=== PATIENT | female | born 1990 | race Caucasian/White ===

== ENCOUNTER 2022-04-26 16:23 | Emergency (ER) | payer BC, SELFPAY ==
[2022-04-26 16:25] VITALS: BP 126/76; PULSE 117; RESP 16; TEMP 37.7; O2SAT 100
--- NOTE | 2022-04-26 16:52 | ED.GENADULT ---
HPI - General Adult General Chief complaint: Upper Respiratory Infection Stated complaint: lump on right side of neck Source: patient Mode of arrival: ambulatory Limitations: no limitations History of Present Illness HPI narrative: Patient presents for evaluation of sick symptoms. For the last few days she has had headache, fatigue, nausea. Yesterday she developed a sore throat and right-sided ear pain. Today she noted some right-sided lymphadenopathy. No recent sick contacts to her knowledge. She had COVID in 2020. She is not COVID vaccinated. She uses an e-cigarette. She is not taking any medications to assist with her symptoms. She took a home COVID test this morning which was negative. Her heart rate was elevated on arrival. She denies any chest pain, shortness of breath, palpitations. She states whenever she is evaluated by a healthcare professional, she feels anxious. She feels anxious at the present time. No additional complaints or concerns Related Data Allergies Allergy/AdvReac Type Severity Reaction Status Date / Time sulfamethoxazole AdvReac Severe Other Verified 04/26/22 16:39 [From Bactrim] trimethoprim [From Bactrim] AdvReac Severe Other Verified 04/26/22 16:39 Review of Systems Review of Systems: CONSTITUTIONAL: Reports fatigue. Denies fever, chills, or sweats. EYES: Denies visual changes, redness, or discharge. ENT: Reports sore throat and right ear pain. Denies rhinorrhea, congestion CARDIOVASCULAR: Denies chest pain, palpitations, or edema. RESPIRATORY: Denies cough or dyspnea. GASTROINTESTINAL: Reports nausea. Denies abdominal pain, vomiting, or diarrhea. GENITOURINARY: Denies dysuria or hematuria. SKIN: Denies rash or itching. LYMPHATICS: Reports right sided lymphadenopathy in the neck MUSCULOSKELETAL: Denies back pain, joint pain, or myalgia. NEUROLOGIC: Denies headache, numbness, dizziness, or weakness. PSYCHIATRIC: Reports anxiety 2/2 coming in for medical evaluation. Denies depression. [facility] Past Medical History Medical History (Updated 04/26/22 @ 17:17 by Rodrigo Silva, LOGISTICS ADMINISTRATOR, ) Anxiety Depression Surgical History Surgical History History of cholecystectomy History of tubal ligation Family History Family History (Reviewed 04/26/22 @ 16:54 by Rodrigo Silva, [facility] Father Esophageal cancer Diabetes mellitus Social History Social History Smoking status: Current every day smoker Tobacco type: e-cigarettes/vaping Alcohol intake: current Alcohol use details: social Substance use: never Living arrangements: with family Gender identity (if verbalized by the patient): Female Sexual Orientation (if Verbalized by the Patient): Straight or Heterosexual Spiritual care concerns: No Exam Narrative: GENERAL: Well-appearing, well-nourished, and in no acute distress. HEAD: Normocephalic, atraumatic. EYES: PERRLA and EOMI. ENT: Nares clear, no rhinorrhea or epistaxis. Mucous membranes moist. Oropharynx without tonsillar hypertrophy exudate or other lesions. Mild posterior pharyngeal erythema. Mild right TM erythema. NECK: Supple. No adenopathy or masses. No carotid bruits or JVD CHEST: Clear to auscultation. No respiratory distress. No wheezes rales or rhonchi HEART: Normal rhythm. Rate 115. No murmur heard. Normal peripheral pulses. ABDOMEN: Soft, nontender, nondistended, normal active bowel sounds. EXTREMITIES: Normal range of motion. No edema. SKIN: Warm, dry, no rash. LYMPHATICS: Right-sided jugulodigastric lymph node tenderness NEURO: No focal deficits. Alert and oriented x3. PSYCH: Normal mood and affect. Course Course Emergency Course: This is a 31-year-old female who presented with reports of sick symptoms. She was tachycardic, but indicated this is consistent with normal tachycardia when she is evaluated by [facility]
== END 2022-04-26 17:20 | disposition home or self-care (01) ==
PROVIDERS: Emergency Provider Nurse Practitioner
DX: J02.9 Acute pharyngitis, unspecified (principal); Z20.822 Contact with and (suspected) exposure to COVID-19; F17.290 Nicotine dependence, other tobacco product, uncomplicated
CPT/HCPCS: 36416; 86308; 87081; 87426; 87880; 99213; C9803; G0463

== ENCOUNTER 2022-04-28 09:55 | Emergency (ER) | payer BC, SELFPAY ==
--- NOTE | ~2022-04-28 | CT_ITS ---
EXAMINATION: CT soft tissue neck w con DATE: 04/28/2022 11:47 INDICATION: Right-sided facial swelling and pain with chewing. TECHNIQUE: Computed tomography (CT) of the neck was performed with 75 mL Omnipaque-300 intravenous co ntrast. Automated exposure control and iterative reconstruction technique were employed. The dose-hilario gth product was 503.08 mGy-cm. COMPARISON: None FINDINGS: Asymmetric swelling and hyperemia of the right parotid gland relative to left. Consistent with paroti tis. There is soft tissue swelling with mild stranding in the subcutaneous fat more caudally at the r ight submandibular region overlying the right submandibular gland which appears relatively symmetric with the left submandibular gland. Thyroid gland is unremarkable. There are scattered normal-sized ly mph nodes in the neck, no lymphadenopathy. No abscess or masses identified. Mastoids and middle ear cavities are clear. Orbits are normal. Asymmetric decreased size of the right maxillary sinus relativ e to the left which could be either developmental or sequela of chronic sinusitis. The vasculature is patentand normal in caliber. Visualized portion of the airway and upper lungs are clear. Superior me diastinum is unremarkable. Bones are unremarkable. IMPRESSION: 1. Asymmetric swelling and hyperemia of the right parotid gland consistent with parotitis. Reviewed, dictated and finalized at location A.
[2022-04-28 10:00] VITALS: BP 133/87; PULSE 99; RESP 18; TEMP 36.8; O2SAT 100
--- NOTE | 2022-04-28 10:36 | ED.GENADULT ---
HPI - General Adult General Chief complaint: Unspecified Stated complaint: Swollen right face Time Seen by Provider: 04/28/22 10:08 Source: patient and old records reviewed Mode of arrival: ambulatory Limitations: no limitations History of Present Illness HPI narrative: Patient is a 31-year-old female who presents to the ED with report of right-sided facial cheek/neck swelling. Patient reports she first noticed the swelling on Thursday. She was seen at urgent care on Thursday at which point she was prescribed amoxicillin for pharyngitis. Tested negative for strep, COVID, mono at that time. She has been taking the amoxicillin as prescribed, but reports with swelling does not seem to be improving, prompting her presentation to the ED today. She has not taken anything for her discomfort. No worsening of discomfort with eating or salivation. She reports having fatigue over the weekend, but denies any significant sore throat, rhinorrhea, congestion, nausea, vomiting, cough, difficulty breathing. She did have a fever at the urgent care, but denies any since. Related Data Allergies Allergy/AdvReac Type Severity Reaction Status Date / Time sulfamethoxazole AdvReac Severe Other Verified 04/28/22 10:05 [From Bactrim] trimethoprim [From Bactrim] AdvReac Severe Other Verified 04/28/22 10:05 Review of Systems Review of Systems: CONSTITUTIONAL: Reports fatigue. Denies fever, chills. ENT: Reports swelling of R sided facial cheek/neck. Denies rhinorrhea, congestion, sore throat, or otalgia. CARDIOVASCULAR: Denies chest pain. RESPIRATORY: Denies cough or dyspnea. GASTROINTESTINAL: Denies nausea, vomiting. MUSCULOSKELETAL: Denies back pain, joint pain, or myalgia. NEUROLOGIC: Denies headache, numbness, or weakness. All systems reviewed & are unremarkable except as noted in HPI and below PMFSH Past Medical History Medical History Anxiety Depression Surgical History Surgical History History of cholecystectomy History of tubal ligation Family History Family History Father Esophageal cancer Diabetes mellitus Social History Social History Smoking status: Current every day smoker Tobacco type: e-cigarettes/vaping Alcohol intake: current Alcohol use details: social Substance use: never Gender identity (if verbalized by the patient): Female Sexual Orientation (if Verbalized by the Patient): Straight or Heterosexual Spiritual care concerns: No Exam Narrative: GENERAL: Well appearing, well-nourished, non-toxic, in no acute distress. HEAD: Normocephalic, atraumatic. EYES: PERRL/EOMI, conjunctivae clear bilaterally. NOSE: Normal, no drainage. EARS:TMS clear, with good light reflex. No erythema or bulging. No tenderness to palpation with manipulation of pinna bilaterally. No swelling or erythema of the EAC bilaterally. THROAT: Pharynx clear, very minimal posterior erythema, no exudate. MMs moist. No deviation of uvula. No significant tonsillar hypertrophy appreciated. NECK: Supple. Tender swelling/suspected LAD right anterior cervical region. Very mild swelling noted to right-sided neck. RESPIRATORY: Airway patent, respirations nonlabored. Clear to auscultation bilaterally, no rales, rhonchi, wheezing. CARDIOVASCULAR: Regular rate and rhythm without murmurs, rubs, or gallops. Peripheral pulses 2+ and equal bilaterally. MUSCULOSKELETAL: Moves all extremities. Strength/ROM intact without gross deformities. SKIN: Warm, dry, normal color. No rashes. NEURO: A&O X3. Speech clear. Cranial nerves II-XII grossly intact. Steady gait. No ataxic movements. PSYCHIATRIC: Appropriate mood and affect. Normal interaction. Course Consultations Consultation #1: Discussed case with Dr. Hudson, ENT. Advised clindamycin
[2022-04-28 11:04] LABS: Basophils Absolute Auto 0.1 K/mm3 (0.0-0.1); Eosinophils Absolute Auto 0.1 K/mm3 (0-0.3); Eosinophils Percent Auto 1.2 % (0-4.4); Hemoglobin 15.3 g/dL (12.0-15.0); Immature Granulocyte Absolute 0.02 K/mm3 (0.00-0.031); Immature Granulocyte Percent A 0.2 % (0-0.5); Lymphocytes Absolute Auto 1.67 K/mm3 (0.9-3.2); Mean Corpuscular HGB Conc 32.6 g/dl (32-36); Mean Corpuscular Hemoglobin 30.1 pg (26-34); Mean Corpuscular Volume 92.3 fl (80-100); Mean Platelet Volume 11.9 fl (7.4-10.4); Monocytes Absolute Auto 0.6 K/mm3 (0.1-0.6); Neutrophils Absolute Auto 6.8 K/mm3 (1.3-6.7); Neutrophils Percent Auto 73.6 % (45.5-73.1); Platelet Count Result 297 k/mm3 (150-375); Red Blood Count 5.09 M/mm3 (4.2-5.4); Red Cell Distribution Width 13.1 % (11.5-14.5); White Blood Count 9.3 K/mm3 (4.5-10.0)
[2022-04-28 11:14] LABS: Alanine Aminotransferase 29 U/L (6-35); Albumin Level 5.2 g/dL (3.5-5.1); Alkaline Phosphatase 85 U/L (38-126); Anion Gap 13 mmol/L (8-16); Aspartate Amino Transferase 22 U/L (14-36); Bilirubin,Total 0.5 mg/dL (0.2-1.3); Blood Urea Nitrogen 13 mg/dL (7-17); Calcium 9.5 mg/dL (8.4-10.2); Carbon Dioxide 28 mmol/L (22-30); Chloride 100 mmol/L (98-107); Estimated CRCL calculation 91 ml/min; Estimated Glomerular Filt Rate > 60; Glucose 95 mg/dL (65-110); Potassium 4.2 mmol/L (3.4-5.0); Sodium 141 mmol/L (137-145)
[2022-04-28 13:06] VITALS: BP 135/80; PULSE 87; RESP 16; O2SAT 99
== END 2022-04-28 13:07 | disposition home or self-care (01) ==
PROVIDERS: Physician Assistant; Emergency Provider Emergency Medicine
DX: K11.21 Acute sialoadenitis (principal); F17.290 Nicotine dependence, other tobacco product, uncomplicated
CPT/HCPCS: 36415; 70491; 80053; 81025; 85025; 99284; Q9967

== ENCOUNTER 2023-05-21 07:44 | Outpatient (CLI) | payer BC, SELFPAY ==
--- NOTE | 2023-06-12 15:08 | WPDSLEEPSTUD ---
Sleep Study Date of Study: 05/21/23 Ordering Provider: Maryann Gamino, Interpreting Physician: Sera Garcia MD Sleep Study Type: CPAP Titration Height: 1.52 m Weight: 96.162 kg Body Mass Index: 41.3 Neck Circumference (inches): 14 [place]: 1 Reason for Sleep Study * 04/01/2023- Home sleep test showing mild obstructive sleep apnea, AHI 5, desaturation to 92%, patient presents now for CPAP titration. 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 She borrowed her smart phone, reports her saturation were down as low as 70% range. Her home sleep test showed an AHI of 5. She now presents for CPAP titration. She rarely a well awakens from sleep feeling short of breath. She frequently awakens at night with heartburn, belching or coughing. She frequently snores, occasionally loud enough that others complain. She frequently has difficulty sleeping with a cold. She does not gasp for breath at night or have a excessive sweating at night. She rarely notices her heart pounding irregularly at night. She does not fall asleep during the day, does not fall asleep involuntarily or while driving. She does not have loss of muscle tone with strong emotion. She does not have daytime difficulties due to excessive sleepiness. She does not feel paralyzed on waking or falling asleep. She does not have vivid dreamlike scenes upon awakening or falling asleep. She does not feel afraid to go to sleep. She rarely has nightmares. She occasionally remembers her dreams. She rarely has racing thoughts, feelings of sadness, depression or anxiety. She does not have muscular tension. She rarely notices parts of her body jerking. She does not kick at night. She does not have crawling or aching feelings in her legs. She denies having leg pain at night. She does not have morning jaw pain. She does not grind her teeth at night. She is not bothered by pain during the day or awakened by pain at night. She does not wake up feeling stiff in the morning with sore muscles or pain in the neck and spine. She takes antacids regularly. Normal bedtime is between 9:00 p.m. and 9:30 p.m., falling asleep within 10-20 minutes, waking once at night to go to the bathroom. 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 She is able to return to sleep within 5 minutes. Her wake-up time is 5:30 a.m. to 6:00 a.m.. On weekends she goes to bed an hour later, between 10:00 p.m. and 10:30 p.m., wakes between 7:00 a.m. and 9:00 a.m.. She estimates getting 6-8 hours of sleep normally. She does not take naps. A short nap is not refreshing. She is drowsy for 2 hours after waking. She feels better in the evening compared to other times of day. Habits: Tobacco; quit smoking 2 years ago. Caffeine, 1 serving a day. Alcohol, only on social occasions. No recreational substance. [facility] Past Medical History Medical History (Updated 06/12/23 @ 17:59 by Sera Garcia MD) Anxiety Depression Surgical History Surgical History History of cholecystectomy History of tubal ligation Family History Family History Father Esophageal cancer Diabetes mellitus Social History Social History Smoking status: Current every day smoker Tobacco type: e-cigarettes/vaping Alcohol intake: current Alcohol use details: social Substance use: never Living arrangements: with family Gender identity (if verbalized by the patient): Female Sexual Orientation (if Verbalized by the Patient): Straight or Heterosexual Spiritual care concerns: No Medications Home Medications Medication Instructions Recorded Confirmed Type amoxicillin 500 mg capsule 500 mg PO TID #30 caps 04/26/22 Rx clindamycin HCl 300 mg cap
[2023-06-12 18:00] VITALS: BMI 41.3
== END 2023-05-22 06:42 | disposition home or self-care (01) ==
PROVIDERS: Visit Provider Family Medicine
DX: G47.33 Obstructive sleep apnea (adult) (pediatric) (principal); R53.83 Other fatigue; F17.290 Nicotine dependence, other tobacco product, uncomplicated
CPT/HCPCS: 95811

== ENCOUNTER 2025-02-28 09:10 | Observation (INO) | payer BC, SELFPAY ==
[2025-02-28] VITALS (7 sets, daily range): BP systolic 112–139; BP diastolic 55–88; PULSE 71–106; RESP 16–20; TEMP 36.3–36.7; O2SAT 98–100; BMI 38.8
--- NOTE | ~2025-02-28 | MR_ITS ---
EXAMINATION: MR brain/brain stem wo/w con DATE: 03/01/2025 15:12 INDICATION: Right-sided facial numbness and weakness. TECHNIQUE: Magnetic resonance imaging (MRI) of the brain and brainstem was performed without and with 18 mL Multihance intravenous contrast. Sequences included sagittal and axial T1-weighted SE, axial d iffusion-weighted FS SE, axial 3D SWAN, axial T2-weighted FLAIR, and axial T2-weighted FSE. Postcontr ast axial and coronal T1-weighted SE was obtained. Apparent diffusion coefficient (ADC) maps were cre ated. COMPARISON: Head CT and CT angiogram dated 02/28/2025 FINDINGS: There are no areas of restricted diffusion to suggest acute infarction. No intracranial hemorrhage or abnormal intracranial mass lesion. There are no intraparenchymal signal abnormalities seen on the ot her pulse sequences. The ventricles are symmetric and normal in size. There are no abnormal extra-axi al fluid collections. Flow voids are seen in the cerebral arteries on the T2-weighted sequences consi stent with their expected patency. Visualized orbits and soft tissues are unremarkable. Consistent is decreased size of the right maxillary sinus There are no areas of abnormal enhancement on the post c ontrast images. IMPRESSION: 1. Normal brain. Reviewed, dictated and finalized at location A. IMPRESSION: 1. Normal brain.
--- NOTE | ~2025-02-28 | CT_ITS ---
EXAMINATION: CTA BRAIN/CAROTID DATE: 02/28/2025 10:47 INDICATION: Right-sided facial numbness and weakness TECHNIQUE: Computed tomographic angiography (CTA) of the head and neck was performed with 100 mL Omni paque-350 intravenous contrast. Multiplanar reconstructions and maximum intensity projection 3D-recon structions of the carotid arteries and of the intracranial arteries were created by the technologist on a separate workstation. Precontrast CT of the head was also obtained. Automated exposure control and iterative reconstruction technique were employed.The dose-length product was 1536.87 mGy-cm. COMPARISON: None. FINDINGS: Carotid arteries: Recess portion of the aortic arch and great vessels arising from the arch are normal in caliber with no hemodynamically significant stenosis or dissection. There is no atherosclerotic plaque with 0% luz nosis of the right and left carotid bulbs relative to normal distal artery lumen diameter (NASCET cri teria). Bilateral vertebral arteries are codominant with no evidence stenosis. Cervical soft tissues are unremarkable. Visualized upper lungs are clear. Likely positional straightening of the normal cer vical lordosis with mild upper thoracic and minimal cervical spondylosis. Head: No acute intracranial hemorrhage, acute infarction or abnormal extra axial fluid collection. Ventricl es are normal and symmetric. No mass/mass effect. No abnormally enhancing brain lesions on the postco ntrast imaging. The right maxillary sinus is small thickening. The orbits, paranasal sinuses and mast oid air cells are normal. Intracranial arteries Vertebral arteries are codominant. There is no hemodynamically significant stenosis in the vertebral, basilar and internal carotid arteries. Both A1 and P1 segments are patent. There are also patent sma ll intercommunicating and bilateral posterior communicating arteries. There are no aneurysms identifi ed. Cerebral arterial arborization appears symmetric. IMPRESSION: 1. No atherosclerotic plaque with 0% stenosis of the right and left carotid bulbs relative to normal distal artery lumen diameter (NASCET criteria). 2. Normal brain and cerebral CT angiogram. Reviewed, dictated and finalized at location A. IMPRESSION: 1. No atherosclerotic plaque with 0% stenosis of the right and left carotid bul bs relative to normal distal artery lumen diameter (NASCET criteria). 2. Normal brain and cerebral CT angiogram.
--- NOTE | ~2025-02-28 | XR_ITS ---
EXAMINATION: XR chest 1V portable 02/28/2025 10:42 INDICATION: Right-sided numbness PROCEDURE: AP portable chest COMPARISON: No prior studies for comparison. FINDINGS: The lungs are clear. The cardiomediastinal silhouette is within normal limits. There are no pleural effusions. There is no pneumothorax suspected. IMPRESSION: 1: NO ACUTE CARDIOPULMONARY DISEASE. Reviewed, dictated and finalized at location A.
--- OUTSIDE RECORDS SUMMARY | 2025-02-28 09:13 | XMS_ITS | Referral Summary ---
Author Organization [facility] Building [address] Address [address] [place] [address] Care Team Providers Care Gastroenterology Nurse Practitioner Name Role Phone Tramaine Shook MD Primary Care Provider Allergies Active Allergy Reactions Criticality Noted Date Comments Sulfamethoxazole-Tr imethoprim Other (See comments) Low History of pancreatitis during treatment of Bactrim. Unable to rule out cause was not related to antibiotic. Medications No known medications Active Problems Problem Noted Date Diagnosed Date Menorrhagia with regular cycle 12/03/2022 Assessment & Plan (12/03/2022 9:56 AM FORGING DIES FINAL FINISHER): Discussed options including Mirena IUD or OPC. She was amenorrheic with Mirena in the past. Discussed bleeding changes and workup including possible pelvic ultrasound and CBC. She does not think her periods are heavy enough at this time to further investigate and she would like to continue to monitor. We discussed that she can continue to monitor her periods and call us if they increase in flow or duration, is symptomatic, or if she begins bleeding irregularly throughout the month. She is receptive to this plan. Perineal abscess 02/04/2019 Assessment & Plan (02/04/2019 6:02 PM CDT): Doxy erx'd to pharmacy - pt does not want abscess(s) to be drained if possible, would like to try oral antibiotics first to see if that clears them up. Call next week if not improving. May have to consider I&D. Acute cholecystitis 03/25/2016 Overview (01/08/2017): Acute cholecystitis No pathologic diagnosis 11/02/2013 Overview (01/09/2017): No diagnosis Immunizations Immunization Administration Dates Next Due Tdap 11/28/2015 Social History Tobacco Use Types Packs/Day Years Used Date Smoking Tobacco: Former Smokeless Tobacco: Former Comments:Smoking History Pac ks/day: 0.5 Packs Alcohol Use Standard Drinks/Week Comments Yes 0 (1 standard drink = 0.6 oz pur e alcohol) Humiliation, Afraid, Rape, and Kick questionnair e Answer Date Recorded Within the last year, have y ou been afraid of your partner or ex-partner? No 12/03/2022 Within the last year, have y ou been humiliated or emotionally abused in other ways by your partner or ex-partner? No Within the last year, have y ou been kicked, hit, slapped, or otherwise physically hurt by your partner or ex-partner? No 12/03/2022 Within the last year, have y ou been raped or forced to have any kind of sexual activity by your partner or ex-partner? No 12/03/2022 PHQ-2 Answer Date Recorded PHQ-2 Total Score (If total score is 3 or more points, staff should administer the PHQ-9) 0 12/03/2022 Personal Safety Answer Date Recorded Getting School Help Needed Not on file 10/09 Comments No Sex and Gender Information Value Date Recorded Sex Assigned at Not on file Legal Sex Female 9:15 AM FORGING DIES FINAL FINISHER Gender Identity Not on file Sexual Orientation Not on file Last Filed Vital Signs Vital Sign Reading Time Taken Comments Blood Pressure 106/70 12/03/2022 9:05 AM FORGING DIES FINAL FINISHER Pulse 93 12/03/2022 9:05 AM FORGING DIES FINAL FINISHER Temperature 36.5 C (97.7 F) 05/14/2021 10:45 AM CDT Respiratory Rate 16 05/14/2021 10:4 5 AM CDT Oxygen Saturation 99% 05/14/2021 10: 45 AM CDT Inhaled Oxygen Concentration - - Weight 100.2 kg (220 lb 12.8 oz) 12/03/2022 9:05 AM FORGING DIES FINAL FINISHER Height 152.4 cm (5') 12/03/2022 9:05 AM FORGING DIES FINAL FINISHER Body Mass Index 43.12 12/03/2022 9:05 AM FORGING DIES FINAL FINISHER Plan of Treatment Not on file Procedures Procedure Name Priority Date/Time Associated Diagnosis Comments PAP AND HIGH RISK HPV, REFLEX TO GENOTYPING Routine 12/03/2022 9:54 AM FORGING DIES FINAL FINISHER Well woman exam SERUM HEPATITIS C AB Routine 05/07/2015 8:52 AM CDT from Last 3 Months or Most Recently Relevant to Health Maintenance Results * Pap and High Risk HPV, reflex to Genotyping (12/03/2022 9:54 AM FORGING DIES FINAL FINISHER) CLINICAL INFORMATION: [facility] Comment:None given LMP [employer] [facility] Comment:A Previous Pap [facility] All Protector Agency [facility] Comment:None given Prev. Bx [facility] Comment:None given SOURCE: [facility] Comment:Cervix, Endocervix Pap, specimen adequacy [facility] Comment: Satisfactory for evaluation. Endocervical/transformation zone component present. Age and/or menstrual status not provided HPV interp [facility] Comment:Negative for intraep ithelial lesion or malignancy. [employer] [facility] Comment: MVB, CT(ASCP) CT Screening Location: [place] [address] [place] [address] Comment [facility] Comment: EXPLANATORY NOTE: The Pap is a screening test for cervical cancer. It is not a diagnostic test and is subject to false negative and false positive results. It is most reliable when a satisfactory sample, regularly obtained, is submitted with relevant clinical findings and history, and when the Pap result is evaluated along with historic and current clinical information. Human papillomavirus DNA, High Risk E6/E7 Not Detected NOT DETECTED [facility] [facility] Comment: Not Detected High Risk HPV types (16,18,31,33,35,39,45,51,52, 56,58,59,66,68) were not detected. Other HPV types which cause anogenital lesions may be present. The significance of the other types of HPV in malignant processes has not been established. Methodology: Real Time PCR Thin prep 12/03/2022 9:54 AM FORGING DIES FINAL FINISHER 12/04/2022 4:22 AM FORGING DIES FINAL FINISHER Ayse Saleh NP LAB CYTOLOGY ORDERABLES Fin al Result [facility] [address] [place] [address] [facility] [address] [facility] [place] [address] * Serum Hepatitis C ab (05/07/2015 8:52 AM CDT) HCV ab NON-REACTI VE NON-REACTI VE HISTORICAL RESULTS Hepatitis signal to cutoff ratio 0.01 <1.00 HISTORICAL RESULTS Serum 05/07/2015 8:52 AM CDT Narrative HISTORICAL RESULTS - 05/08/2015 11:00 AM CDT Test performed at [facility] [place] [address] [place] [address] Director: MEAGAN DEJESUS DO,MPH Historical Provider MD LAB BLOOD ORDERABLES Debby l Result HISTORICAL RESULTS from Last 3 Months or Most Recently Relevant to Health Maintenance Insurance [facility] Care Teams Gastroenterology Nurse Practitioner Relationship Specialty Start Date End Date Tramaine Shook MD [address] [place] [address] [phone] [place] [address] PCP - General 05/14/21
--- OUTSIDE RECORDS SUMMARY | 2025-02-28 09:13 | XMS_ITS | Data Portability ---
Author Organization [facility], Main Office Address [address] [place] [address] Assessment No assessment recorded. Plan of Treatment Reminders Order Date Submit Date Provider Last Modified By Organization Details Last Modified Time Details Appointments None recorded. Lab vitamin D, 25-hydroxy, total, serum 2023 [email or web address] [place] [address] (Lab), [address] [place], [address], 4 09:10:22 TSH, serum or plasma 2023 [email or web address] [place] [address] (Lab), [address] [place], [address], 4 09:10:23 CBC w/ auto diff 2023 [email or web address] [place] [address] (Lab), [address] [place], [address], 4 09:10:24 glycohemogl obin, total, blood 2023 [email or web address] [place] [address] (Lab), [address] [place], [address], 4 09:10:23 CMP, serum or plasma 2023 [email or web address] [place] [address] (Lab), [address] [place], [address], 4 09:10:23 lipid panel, serum 2023 024 [email or web address] [facility] (Lab), [address] [place], [address], 4 09:10:23 hepatic function panel, serum 2023 024 [email or web address] 7 [facility] (Lab), [address] [place], [address], 4 09:10:23 HbA1c (hemoglobin A1c), blood 2022 023 [email or web address] 1 Not available 3 08:08:09 TSH, serum or plasma 2022 023 [email or web address] 1 Not available 3 08:08:09 BMP, serum or plasma 2022 023 [email or web address] 1 Not available 3 08:08:09 vitamin D, 25-hydroxy, total, serum 2022 023 [email or web address] 1 Not available 3 08:08:09 lipid panel, serum 2022 023 [email or web address] 1 Not available 3 08:08:09 hepatic function panel, serum 2022 023 [email or web address] 1 Not available 3 08:08:09 CBC w/ auto diff 2022 023 [email or web address] 1 Not available 3 08:08:[address] referral - Please call patient to schedule. 2023 024 [email or web address] Amelia Dallas MD (Dermatology) , [address], [place], [address], 4 09:20:28 Procedures None recorded. Surgeries None recorded. Imaging home sleep study - *please call pt to schedule* 2022 023 [email or web address] [facility] [place], [address] [facility], [place], [address], 4 17:18:22 Medication Orders phentermine 37.5 mg tablet 2023 024 [facility], [address], [place], [place], [id number], 4 14:25:31 pantoprazol e 40 mg tablet,april yed release 2023 024 [facility], [address], [place], [place], [id number], 4 14:25:33 phentermine 37.5 mg tablet 2022 023 [email or web address] 3 [facility], [address], [place], [place], [id number], 4 14:16:06 topiramate 50 mg tablet 2022 023 [email or web address] 3 [facility], [address], [place], [place], [id number], 4 14:15:59 topiramate 25 mg tablet 2022 023 3 [facility], [address], [place], [place], [id number], 4 14:16:03 Patient TargetsNo targets recorded. Patient InstructionsNo instructions recorded. Reason for Referral [employer] Referral for S kin lesion Please call patient to schedule. Referring Physician: Malinda Bunch, Family Medicine, Encounter Date: 06/07/2024 Results Created Date Observation Date Name Description Value Unit Range Abnormal Flag Note LastModifiedBy Organization Detail LastModifiedTime 01/23/20 23 01/24/2023 LIPID PANEL , STAND KATE cholesterol, total 236 mg/dL <200 high Not Available [facility] [address] [address] [place], [address], 01/24/2023 03:12:23 01/23/20 23 01/24/2023 LIPID PANEL , STAND KATE HDL cholesterol 44 mg/dL > or = 50 low Not Available [facility] [address] [place], [address], 01/24/2023 03:12:23 01/23/20 23 01/24/2023 LIPID PANEL , STAND KATE triglyceride s 124 mg/dL <150 normal Not Available [facility] [address], [address], 01/24/2023 03:12:23 01/23/20 23 01/24/2023 LIPID PANEL , STAND KATE LDL-choleste rol 166 mg/dL _(rosi c) high Refer ence range : <100 Skylar able range <100 mg/dL for prima ry preve ntion ; <70 mg/dL for patie nts with CHD or diabe tic patie nts with > or = 2 CHD risk facto rs. LDL-C is now calcu lated using the Tracy n-Hop kins calcu cortney n, which is a valid ated novel metho d provi ding minnie r accur acy than the Fried stephan equat ion in the estim ation of LDL-C . Tracy estrada SS et al. ANGELIKA. 2013; 310(1 9): 2061- 2068 (http ://ed ucati on.Qu Annalisa montelongo A Bit Luckys. com/f aq/FA Q164) Not Available [facility] [address] [place], [address], 01/24/2023 03:12:23 01/23/2001/24/2023 LIPID PANEL , STAND KATE chol/HDLC ratio 5.4 (calc ) <5.0 high Not Available [facility] [address] [place], [address], 01/24/2023 03:12:23 01/23/20 23 01/24/2023 LIPID PANEL , STAND KATE non HDL cholesterol 192 mg/dL _(rosi c) <130 high For patie nts with diabe henrietta plus 1 major ASCVD risk facto r, treat ing to a non-H DL-C goal of <100 mg/dL (LDL- C of <70 mg/dL ) is consi dered a thera peuti c optio n. Not Available [facility] [address] [place], [address], 01/24/2023 03:12:23 01/23/2001/24/2023 BASIC METAB OLIC PANEL glucose 115 mg/dL 65-99 high Fasti ng refer ence inter aureliano For someo ne witho ut known diabe henrietta, a gluco se value betwe en 100 and 125 mg/dL is consi stent with predi abete s and shoul d be confi rmed with a follo w-up test. Not Available [facility] [address] [place], [address], 01/24/2023 03:12:25 01/23/2001/24/2023 BASIC METAB OLIC PANEL urea nitrogen (BUN) 14 mg/dL 7-25 normal Not Available [facility] [address] [address] [place], [address], 01/24/2023 03:12:25 01/23/2001/24/2023 BASIC METAB OLIC PANEL creatinine 0.75 mg/dL 0.50-0 .97 normal Not Available [facility] [address] [address] [place], [address], 01/24/2023 03:12:25 01/23/2001/24/2023 BASIC METAB OLIC PANEL eGFR 109 mL/mi n/1.7 3m2 > or = 60 normal The eGFR is based on the CKD-E PI 2020 equat ion. To calcu late the new eGFR from a previ ous Creat inine or Cysta tin C resul t, go to https ://dionisio fernandes.rodriguez theodore/zhanna carreoness ional s/ kdoqi /gfr% 5Fcal culat or Not Available [address], [address], 01/24/2023 03:12:25 01/23/20 23 01/24/2023 BASIC METAB OLIC PANEL BUN/creatini ne ratio NOT APPLIC ABLE (calc ) 6-22 Not Available [address], [address], 01/24/2023 03:12:25 01/23/20 23 01/24/2023 BASIC METAB OLIC PANEL sodium 136 mmol/ L 135-14 6 normal Not Available [address], [address], 01/24/2023 03:12:25 01/23/20 23 01/24/2023 BASIC METAB OLIC PANEL potassium 4.5 mmol/ L 3.5-5. 3 normal Not Available [address], [address], 01/24/2023 03:12:25 01/23/20 23 01/24/2023 BASIC METAB OLIC PANEL chloride 104 mmol/ L 98-110 normal Not Available [address], [address], 01/24/2023 03:12:25 01/23/20 23 01/24/2023 BASIC METAB OLIC PANEL carbon dioxide 22 mmol/ L 20-32 normal Not Available [address], [address], 01/24/2023 03:12:25 01/23/20 23 01/24/2023 BASIC METAB OLIC PANEL calcium 9.9 mg/dL 8.6-10 .2 normal Not Available [address], [address], 01/24/2023 03:12:25 01/23/20 23 01/24/2023 HEPAT IC FUNCT ION PANEL protein, total 7.2 g/dL 6.1-8. 1 normal Not Available [address], [address], 01/24/2023 03:12:26 01/23/20 23 01/24/2023 HEPAT IC FUNCT ION PANEL albumin 4.4 g/dL 3.6-5. 1 normal Not Available [address], [address], 01/24/2023 03:12:26 01/23/20 23 01/24/2023 HEPAT IC FUNCT ION PANEL globulin 2.8 g/dL_ (calc ) 1.9-3. 7 normal Not Available [address], [address], 01/24/2023 03:12:26 01/23/20 23 01/24/2023 HEPAT IC FUNCT ION PANEL albumin/glob ulin ratio 1.6 (calc ) 1.0-2. 5 normal Not Available [address], [address], 01/24/2023 03:12:26 01/23/20 23 01/24/2023 HEPAT IC FUNCT ION PANEL bilirubin, total 0.3 mg/dL 0.2-1. 2 normal Not Available [address], [address], 01/24/2023 03:12:26 01/23/20 23 01/24/2023 HEPAT IC FUNCT ION PANEL bilirubin, direct 0.1 mg/dL < or = 0.2 normal Not Available [address], [address], 01/24/2023 03:12:26 01/23/20 23 01/24/2023 HEPAT IC FUNCT ION PANEL bilirubin, indirect 0.2 mg/dL _(rosi c) 0.2-1. 2 normal Not Available [address], [address], 01/24/2023 03:12:26 01/23/20 23 01/24/2023 HEPAT IC FUNCT ION PANEL alkaline phosphatase 52 U/L 31-125 normal Not Available [facility] [employer] [address], [address], 01/24/2023 03:12:26 01/23/20 23 01/24/2023 HEPAT IC FUNCT ION PANEL AST 15 U/L 10-30 normal Not Available [address], [address], 01/24/2023 03:12:26 01/23/20 23 01/24/2023 HEPAT IC FUNCT ION PANEL ALT 20 U/L 6-29 normal Not Available [address], [address], 01/24/2023 03:12:26 01/23/20 23 01/24/2023 CBC (INCL UDES DIFF/ PLT) white blood cell count 8.9 thous and/u L 3.8-10 .8 normal Not Available [address], [address], 01/24/2023 03:12:01/23/20 23 01/24/2023 CBC (INCL UDES DIFF/ PLT) red blood cell count 4.77 donaldo on/uL 3.80-5 .10 normal Not Available [address], [address], 01/24/2023 03:12:01/23/20 23 01/24/2023 CBC (INCL UDES DIFF/ PLT) hemoglobin 14.1 g/dL 11.7-1 5.5 normal Not Available [employer] [address], [address], 01/24/2023 03:12:26 01/23/20 23 01/24/2023 CBC (INCL UDES DIFF/ PLT) hematocrit 45.0 % 35.0-4 5.0 normal Not Available [address], [address], 01/24/2023 03:12:26 01/23/20 23 01/24/2023 CBC (INCL UDES DIFF/ PLT) MCV 94.3 fL 80.0-1 00.0 normal Not Available [address], [address], 01/24/2023 03:12:26 01/23/20 23 01/24/2023 CBC (INCL UDES DIFF/ PLT) MCH 29.6 pg 27.0-3 3.0 normal Not Available [address], [address], 01/24/2023 03:12:26 01/23/20 23 01/24/2023 CBC (INCL UDES DIFF/ PLT) MCHC 31.3 g/dL 32.0-3 6.0 low Not Available [address], [address], 01/24/2023 03:12:26 01/23/20 23 01/24/2023 CBC (INCL UDES DIFF/ PLT) RDW 13.0 % 11.0-1 5.0 normal Not Available [address], [address], 01/24/2023 03:12:26 01/23/20 23 01/24/2023 CBC (INCL UDES DIFF/ PLT) platelet count 296 thous and/u L 140-40 0 normal Not Available [address], [address], 01/24/2023 03:12:26 01/23/20 23 01/24/2023 CBC (INCL UDES DIFF/ PLT) MPV 13.0 fL 7.5-12 .5 high Not Available [address] [place], [address], 01/24/2023 03:12:26 01/23/20 23 01/24/2023 CBC (INCL UDES DIFF/ PLT) absolute neutrophils 6239 cells /uL 1500-7 800 normal Not Available [address], [address], 01/24/2023 03:12:26 01/23/20 23 01/24/2023 CBC (INCL UDES DIFF/ PLT) absolute lymphocytes 2074 cells /uL 850-39 00 normal Not Available [address], [address], 01/24/2023 03:12:26 01/23/20 23 01/24/2023 CBC (INCL UDES DIFF/ PLT) absolute monocytes 347 cells /uL 200-95 0 normal Not Available [address], [address], 01/24/2023 03:12:26 01/23/20 23 01/24/2023 CBC (INCL UDES DIFF/ PLT) absolute eosinophils 151 cells /uL 15-500 normal Not Available [address], [address], 01/24/2023 03:12:26 01/23/20 23 01/24/2023 CBC (INCL UDES DIFF/ PLT) absolute basophils 89 cells /uL 0-200 normal Not Available [address], [address], 01/24/2023 03:12:26 01/23/20 23 01/24/2023 CBC (INCL UDES DIFF/ PLT) neutrophils 70.1 % normal Not Available [address], [address], 01/24/2023 03:12:26 01/23/20 23 01/24/2023 CBC (INCL UDES DIFF/ PLT) lymphocytes 23.3 % normal Not Available [address], [address], 01/24/2023 03:12:26 01/23/20 23 01/24/2023 CBC (INCL UDES DIFF/ PLT) monocytes 3.9 % normal Not Available [address], [address], 01/24/2023 03:12:26 01/23/20 23 01/24/2023 CBC (INCL UDES DIFF/ PLT) eosinophils 1.7 % normal Not Available [facility] [address], [address], 01/24/2023 03:12:26 01/23/20 23 01/24/2023 CBC (INCL UDES DIFF/ PLT) basophils 1.0 % normal Not Available [address], [address], 01/24/2023 03:12:26 01/23/20 23 01/24/2023 TSH TSH 3.83 mIU/L normal Refer ence Range > or = 20 Years 0.40- 4.50 Pregn kalin Range s First trime ster 0.26- 2.66 Secon d trime ster 0.55- 2.73 Third trime ster 0.43- 2.91 Not Available [address], [address], 01/24/2023 03:12:27 01/23/20 23 01/24/2023 VITAM IN D,25- OH,TO YOVANA,I A vitamin D,25-oh,tota l,ia 16 NG/mL 30-100 low Vitam in D Statu s 25-OH Vitam in D: Defic iency : <20 ng/mL Insuf ficie ncy: 20 - 29 ng/mL Optim al: > or = 30 ng/mL For 25-OH Vitam in D testi ng on patie nts on D2-hayden pplem entat ion and patie nts for whom quant itati on of D2 and D3 fract ions is requi red, the [facility] e[facility](TM ) 25-OH VIT D, (D2,D 3), LC/MS /MS is recom germain d: order code [id number] (yariel ents >2yrs ). See Note 1 Note 1 For addit ional infor gay church e refer to http: //[facility] kelsie Nuñez stDia gnost ics.c om/fa q/FAQ 199 (This link is being provi ded for infor tressa contreras/ educa monique l purpo ses only. ) Not Available [facility] [address], [place], [address], 01/24/2023 03:12:28 01/23/2001/24/2023 HEMOG LOBIN A1C hemoglobin A1C 5.1 %_of_ total _HGB <5.7 normal For the purpo se of herbert estefany for the prese nce of diabe henrietta: <5.7% Consi stent with the absen ce of diabe henrietta 5.7-6 .4% Consi stent with incre ased risk for diabe henrietta (pred iabet es) > or =6.5% Consi stent with diabe henrietta This assay resul t is consi stent with a decre ased risk of diabe henrietta. Curre ntly, no conse nsus exist s chandu calabrese use of hemog lobin A1c for diagn osis of diabe henrietta in child johnathon. Accor ding to Ameri can Diabe henrietta Assoc iatio n (ADA) guide lines , hemog lobin A1c <7.0% repre sents optim al contr ol in non-p regna nt diabe tic patie nts. Diffe rent metri cs may apply to speci fic patie nt popul ation s. Stand ards of Medic al Care in Diabe henrietta(A DA). Not Available [facility] [address], [place], [address], 01/24/2023 03:12:28 04/08/2004/01/2023 home sleep study No observ ation record ed. [email or web address] [facility] [place] [address] [place], [address], 04/30/2023 16:02:24 06/12/20 23 05/21/2023 polys omnog berto, titra tion study No observ ation record ed. [email or web address] [address] [place], [address], 02/12/2024 09:32:51 Result Notes None recorded. Problems Name Problem SNOMED Code Status Onset Date Resolution Date Notes Provider Name and Address Organization Details Recorded Time Obesity 403250315 Active 2017 Not Available [facility] 3 19:34:45 Hyperlipidemi a 50385978 Active 2018 Not Available [facility] 3 19:34:45 Pancreatitis 67677302 Active 2022 Maryann Gamino MD [address], [address] , [employer] 3 14:31:04 Weight gain 4202898 Active 2022 Maryann Gamino MD [address], [address] , [employer] 3 14:48:29 Fatigue 97578404 Active 2022 Maryann Gamino MD [address], [address] , [employer] 3 14:49:29 Vitamin D deficiency 40876113 Active 2022 Maryann Gamino MD [address] [place] [address], [address] , [employer] 3 14:49:39 Gastroesophag eal reflux disease without esophagitis 454456619 Active 2022 Maryann Gamino MD [address] [place] [address], [address] , [employer] 3 18:05:56 Sleep apnea 55513688 Active 2022 Maryann Gamino MD [address], [place], [address] , [employer] [facility] [employer] 3 15:02:44 Dysuria 31571412 Active 2022 Maryann Gamino MD [address], [place], [address] , foc.us [facility] [employer] [facility] 3 13:07:48 Obstructive sleep apnea syndrome 93375444 Active 2022 Maryann Gamino MD [address], [place], [address] , foc[employer]us [facility] [employer] [facility] 3 16:03:17 COVID-19 463297316 Active 2022 Maryann Gamino MD [address] [facility], [place], [address] , [employer] [facility] [employer] [facility] 3 17:26:59 Skin lesion 34497882 Active 2023 DAVID Alfredo [address] [facility], [place], [address] , foc.us [facility] [employer] [facility] 4 14:20:00 Problem Notes None recorded. Procedures Surgical History Date Name Laterality Status Provider Name and Address Organization Details Recorded Time ligation of bilateral fallopian tubes completed Maryann Gamino MD [address], [place], [address], [facility] [employer] [facility] [employer] [facility] 01/12/2023 14:35:12 cholecystectomy completed Maryann Gamino MD [address], [place], [address], foc[employer]us [facility] [employer] [facility] 01/12/2023 14:35:39 Imaging Results None recorded. Procedure Notes None recorded. Medical Equipment None Reported. Allergies Allergen ID Allergen Name Allergen Category Reaction Reaction Severity Criticality Documentation Date Start Date Code Code System Note Provider Name and Address Organization Details Recorded Time 12979 Bactrim medicatio n other Not available Not available 12/03/2022 15766 9 RxNorm Not Available [facility] 3 19:37:07 Medications Name Sig Start Date Stop Date Status Note LastModified by Organization Details LastModified Time amoxicillin 500 mg capsule TAKE 1 CAPSULE BY MOUTH THREE TIMES DAILY 01/12 completed Not Available Not Available Not Available doxycycline hyclate 100 mg capsule 11/30 completed Not Available Not Available Not Available clindamycin HCl 300 mg capsule TAKE 1 CAPSULE BY MOUTH EVERY 8 HOURS FOR 10 DAYS 01/12 completed Not Available Not Available Not Available ofloxacin 0.3 % eye drops INSTILL 1 DROP INTO RIGHT EYE THREE TIMES DAILY FOR 7 DAYS active Not Available Not Available No t Available hydrocodone 5 mg-acetamin ophen 325 mg tablet 06/22 completed Not Available Not Available Not Available topiramate 25 mg tablet 1 BY MOUTH FOR 7 DAYS THE 1 BY MOUTH EVERY MORNING AND 2 BY MOUTH EVERY NIGHT AT BEDTIME FOR 7 DAYS THEN 2 BY MOUTH 2 TIMES A DAY 06/07 completed Not Available Not Available Not Available phentermine 37.5 mg tablet TAKE 1 TABLET BY MOUTH EVERY DAY active Not Available Not Available No t Available acetaminoph en 300 mg-codeine 30 mg tablet TK 1 TO 2 TS PO Q 6 H PRN P 09/08 completed Not Available Not Available Not Available ciprofloxac in 250 mg tablet TK 1 T PO Q 12 H FOR 5 DAYS 08/11 completed Not Available Not Available Not Available magnesium oxide 400 mg (241.3 mg magnesium) tablet 11/30 completed Not Available Not Available Not Available benzonatate 100 mg capsule 06/22 completed Not Available Not Available Not Available pantoprazol e 40 mg tablet,april yed release TAKE 1 TABLET BY MOUTH EVERY DAY IN THE MORNING active Not Available Not Available No t Available nitrofurant oin macrocrysta l 100 mg capsule TAKE 1 CAPSULE BY MOUTH TWICE DAILY FOR 7 DAYS 06/30 completed Not Available Not Available Not Available amoxicillin 250 mg capsule 06/22 completed Not Available Not Available Not Available ergocalcife rol (vitamin D2) 1,250 mcg (50,000 unit) capsule TAKE 1 CAPSULE BY MOUTH EVERY WEEK 06/07 completed Not Available Not Available Not Available ibuprofen 600 mg tablet Take 1 tablet 3 times a day by oral route as needed. active Not Available Not Available No t Available methylpredn isolone 4 mg tablets in a dose pack 06/22 completed Not Available Not Available Not Available doxycycline hyclate 20 mg tablet active Not Available Not Available No t Available fluoxetine 20 mg capsule TAKE ONE CAPSULE BY MOUTH EVERY DAY active Not Available Not Available No t Available clindamycin 1 % lotion active Not Available Not Available N ot Available bupropion HCl XL 150 mg 24 hr tablet, extended release TK 1 T PO QD 11/30 completed Not Available Not Available Not Available topiramate 50 mg tablet TAKE 1 TABLET BY MOUTH TWICE DAILY 06/07 completed Not Available Not Available Not Available nitrofurant oin monohydrate /macrocryst als 100 mg capsule Take 1 capsule every 12 hours by oral route. 06/22 completed Not Available Not Available Not Available Linzess 145 mcg capsule Take 1 capsule every day by oral route. 11/30 completed Not Available Not Available Not Available [employer] [facility]-Home COVID-19 Test kit TEST DIRECTED TODAY 06/07 completed Not Available Not Available Not Available Paxlovid 300 mg (150 mg x 2)-100 mg tablets in a dose pack Take as directed 06/07 completed Not Available Not Available Not Available Vitals Date Recorded Body weight Body mass index (BMI) Body height Oxygen saturation Oxygen saturation in Arterial blood by Pulse oximetry Heart rate Systolic And Diastolic Provider Name and Address Organization Details Last Updated DateTime 3 373558. 1 g 43.6 kg/m2 152.4 cm 98 % 98 % 103 /min 128/76 mm[Hg] Sri Aparicio CMA [facility] [employer] 3 14:19:15 Date Recorded Body height Body mass index (BMI) Body weight Body temperature Heart rate Oxygen saturation Oxygen saturation in Arterial blood by Pulse oximetry Systolic And Diastolic Provider Name and Address Organization Details Last Updated DateTime 4 152.4 cm 42.2 kg/m2 27367.9 5 g 98 [degF] 92 /min 96 % 96 % 134/80 mm[Hg] Oli Bar RN [facility] 4 14:14:47 Date Recorded Body height Body mass index (BMI) Body weight Body temperature Heart rate Oxygen saturation Oxygen saturation in Arterial blood by Pulse oximetry Systolic And Diastolic Provider Name and Address Organization Details Last Updated DateTime 3 152.4 cm 43 kg/m2 56587.3 2 g 98.3 [degF] 113 /min 98 % 98 % 132/88 mm[Hg] Oli Bar RN [facility] [employer] [facility] 3 14:41:46 Date Recorded Body height Body mass index (BMI) Body weight Body temperature Heart rate Oxygen saturation Oxygen saturation in Arterial blood by Pulse oximetry Systolic And Diastolic Provider Name and Address Organization Details Last Updated DateTime 4 152.4 cm 42.8 kg/m2 21237.7 3 g 97.7 [degF] 96 /min 98 % 98 % 142/90 mm[Hg] Екатерина Rose MA [facility] 4 14:11:13 Date Recorded Body height Body mass index (BMI) Body weight Body temperature Heart rate Oxygen saturation Oxygen saturation in Arterial blood by Pulse oximetry Systolic And Diastolic Provider Name and Address Organization Details Last Updated DateTime 3 152.4 cm 43.2 kg/m2 733213. 91 g 98.4 [degF] 93 /min 95 % 95 % 128/86 mm[Hg] Oli Bar RN [facility] 3 14:07:55 Social History Question Answer Notes LastModified by Organizat ion Details LastModified Time Tobacco Smoking Status Former Smoker quit 2020 Maryann Gamino MD [address] [place] [address], [address], [facility] 01/12/2023 14:32:44 If You Are , What Was Your Level Of Alcohol Consumption Prior To ? None [email or web address] Information not available 01/12/2023 What Is Your Level Of Caffeine Consumption? Moderate Information not available 01/12/2023 What Type Of Diet Are You Following? REGULAR Information not available 01/12/2023 When Did You Quit Smoking? 1-5yearssinc elastcigaret te [email or web address] Information not available 01/12/2023 What Was The Date Of Your Most Recent Tobacco Screening? 01/12/2023 [email or web address] Information not available 01/12/2023 Has Tobacco Cessation Counseling Been Provided? No [email or web address] Information not available 01/12/2023 Do You Have Any Dietary Restrictions? No Information not available 01/12/2023 Sex: Unknown Functional Status Question Answer Note LastModified by Organizat ion Details LastModified Time Do you use any illicit or recreational drugs? No [email or web address] Information not available 01/12/2023 Do you or have you ever used any other forms of tobacco or nicotine? No [email or web address] Information not available 01/12/2023 What is your level of alcohol consumption? Occasional [email or web address] Information not available 01/12/2023 What is your exercise level? None [email or web address] Information not available 01/12/2023 Mental Status None recorded. Family History Relationship Description Onset Age of this Age Resolved Age Notes LastModified by Organization Details LastModified Time Father Diabetes mellitus [email or web address] Not available 2022 14:19:40 Paternal Grandmother Malignant tumor of breast 1st dx age 32, recurr ence in her 50s frivastorres Not available 01/13/2024 14:10:38 Medical History No medical history recorded. Gynecological History Statement/Question Response Abnormal Pap N Date of LMP 05/18/2024 Dislike of Light during Menstrual Headac he N Do your menstrual headaches get severe N STIs/STDs N Current Control Method Tubal Ligat ion Breast Problems no Sexually Active? Y Weight gain N Do you get headaches during your period N Menses Monthly Y Discharge no Obstetrics History GPAL:G 0 P 2 0 0 0 Type Value Full Term 2 Past Encounters Encounter ID Performer Location Encounter Start Date Encounter Closed Date Diagnosis/Indication Diagnosis SNOMED-CT Code Diagnosis ICD10 Code Diagnosis Note [id number] Maryann Gamino MD [facility] Primary Care [facility] [address] [facility] [address] [place] [address] 01/12/2023 14:12:00 01/12/2023 15:00:17 Hyperlipidemia 11264124 E78.5 Weight gain 1162815 R63. 5 check labsshe will check about insurance coverage for wegovy/sax endapendin g labs may try ozempic/tr ulicity if prediabete s/diabetes if no coverage, will consider low dose phentermin e again Fatigue 68891447 R53.83 Vitamin D deficiency 347 81305 E55.9 [id number] Maryann Gamino MD [facility] Primary Care [address] [place] [address] 03/10/2023 14:37:20 03/10/2023 15:28:39 Dietary management surveillance 368495719 Z71.3 continue phentermin e 37.5 mg dailyadd topiramate 25 mg and titrate up to 50 mg bidpt is s/p BTLf/u in 3 months Hyperlipidemia 99270316 E78.5 reviewed labs-healt hy diet/exerc ise and weight lossstrong family hx of early heart diseasewil l recheck labs in 1 year Sleep apnea 80408428 G47 .30 snoring and excessive daytime somnolence home sleep study ordered [id number] Maryann Gamino MD [facility] Primary Care [address] [address] 06/30/2023 14:02:41 06/30/2023 16:03:47 Dietary management surveillance 990519771 Z71.3 continue phentermin e 37.5 mg dailyconti nue topiramate 50 mg bidpt is s/p BTLf/u in 6 months [id number] Maryann Gamino MD [facility] Primary Care [address] [address] 01/13/2024 14:09:03 01/13/2024 14:40:10 [id number] DAVID Alfredo [facility] Primary Care [address] [address] 06/07/2024 14:00:34 06/07/2024 14:39:09 Adult health examination 914624039 Z00.01 Discussed medication compliance and routine follow ups.Discus sed healthy diet and routine exercise.R ecommend annual flu vaccine and discussed routine eye and dental exams.Will check screening labs as listed below. Gastroesop hageal reflux disease without esophagitis 767996927 K21.9 Will restart medication as listed below. Hyperlipidemia 64787598 E78.5 Will check screening labs as listed below. Obstructiv e sleep apnea syndrome 43928675 G47.33 No concerns at this time. Vitamin D deficiency 347 07938 E55.9 Obesity 704174154 E66.9 BMI 42.8Weight 219lbsBP: 130/78 (manual) Diabetes tommy ellitus screening 964350558 Z13.1 Skin lesion 04569776 L98 .9 Health Concerns Section Related Observation LastModified by Organization Detai ls LastModified Time None Recorded Concern Status LastModified by Organization Details LastModified Time None Recorded Advance Directives Directive None Recorded Payers Encounter Date Sequence Insurance Name Policy Number Policy Yuen Covered Member ID Yuen Member ID Guarantor Name 01/12/2023 1 [place] [id number] Wing Brendan [id number] Pamella Pacheco Brendan 03/10/2023 1 [place] [id number] Wing Brendan [id number] Pamella Pacheco Brendan 06/30/2023 1 [place] [id number] Wing Gloriaers [id number] Pamella Pacheco Brendan 01/13/2024 1 *SELF PAY* Ana Pacheco Brendan 06/07/2024 2 YOLANDADAVID Pacheco Brendan [id number] Pamella Pacheco Brendan Notes Date Note Type Note Provider Name and Address Organization Details Recorded Time 01/12/2023 text/html [facility], she does not have a primary care provider. Pap done last month. She will do mammograms starting at 35. Was on phentermine in 2019 and did well, but now has gained weight and struggles to lose weight. She does feel better at 155-160 punds Maryann Gamino MD [address] [place] [address], [place] [address], [place], [address], [facility] [employer] 01/30/2023 16:59:19 03/10/2023 text/html Here [facility], she does not have a primary care provider. Pap done last month. She will do mammograms starting at 36. Was on phentermine in 2019 and did well, but now has gained weight and struggles to lose weight. She does feel better at 155-160 punds update 03/10/23: she has noticed some improvement in appetite with phentermine and is down 3 pounds but it is not as effective as it was in the past. Her smart watch showed oxygen down to 79%. +snoring and excessive daytime somnolence. Maryann Gamino MD [address], [place] [address], [place], [address], [employer] [facility] [employer] [facility] 03/10/2023 15:06:42 06/30/2023 text/html Here [facility], she does not have a primary care provider. Pap done last month. She will do mammograms starting at 36. Was on phentermine in 2019 and did well, but now has gained weight and struggles to lose weight. She does feel better at 155-160 pounds update 03/10/23: she has noticed some improvement in appetite with phentermine and is down 3 pounds but it is not as effective as it was in the past. Her smart watch showed oxygen down to 79%. +snoring and excessive daytime somnolence. update 06/30/23: she has noticed improvement in her appetite with phentermine and topiramate. no chest pain or sob. Maryann Gamino MD [address], [facility] [address], [place], [address], [employer] 06/30/2023 14:23:20 01/13/2024 text/html Nurse visit only Maryann Gamino MD [address], [place] [address], [place], [address], [employer] [facility] [employer] 01/13/2024 14:25:12 06/07/2024 text/html Patient is a 34 year old female that presents to the office for annual wellness. Patient reports she is doing well overall. Patient reports she would like to restart Phentermine as she was doing well with weight loss while taking it. Patient has been off the medication since April. Patient reports she continues to work on diet and exercise. Patient would like to restart Pantoprazole for GERD. Patient reports her GERD was well controlled and doesn't really know why she stopped taking it. Patient also reports new mole on left cheek that she would like to have removed. wdfo-pxnvcvtMZP-Dg b 2023--normal--sees GYNFlu-declinesCov ox-wjezvrzhQztb-VB D (due 2025) eye-Octental-not UTD Malindacourtney Bunch, CURVE SAW OPERATOR-C [address] [facility], [facility] [address], [place], [address], [facility] [employer] [facility] 06/07/2024 14:30:42 OBGyn Episode Ob Episode Information Episode Created Date Number of Fetuses Patient Bloodtype Patient rh Status Prepregnancy Weight lbs Domestic Partner Domestic Partner Phone Father Name Comsec Manager Status 01/13/20 23 1 CLOSED Fetus Data First Name Last Name Admitted to NICU Weight (g) Sex Living Outcome Pediatric Complications Fetus ID Race Codes Race Delivery Type Full Term 101 Amado Calculation Initial Amdao Date Initial Exam Date Initial Exam Provider Initial Ultrasound Date Last Menstrual Period Date Ultra Sound Weeks Gestation 0 Eighteen To Twenty Week Amado Update Ultra Sound Date Fundal Height At Umbil Quickening Date Ultra Sound Latest Weeks Gestation Final Amado Confirmed By Final Amado Confirmed Date Final Amado Date Ultra Sound Latest Days Gestation 0 0 Menstrual History Last Menstrual Date Menses Monthly On Bcp Conception Prior Menses Frequency Hcg Plus Date Menarche Onset Age Delivery Information Delivery Date Delivery Type Labor Anesthesia Weeks Gestation Incision Type Labor Labor Length Hrs Delivered By Post Complications Tubal Sterilization Discharge Date Comments 1 Discharge Information Feeding Method Contraceptive Method Maternal HG B and HCT Levels Ob Episode Information Episode Created Date Number of Fetuses Patient Bloodtype Patient rh Status Prepregnancy Weight lbs Domestic Partner Domestic Partner Phone Father Name Comsec Manager Status 01/13/20 1 CLOSED Fetus Data First Name Last Name Admitted to NICU Weight (g) Sex Living Outcome Pediatric Complications Fetus ID Race Codes Race Delivery Type Full Term 102 Amado Calculation Initial Amado Date Initial Exam Date Initial Exam Provider Initial Ultrasound Date Last Menstrual Period Date Ultra Sound Weeks Gestation 0 Eighteen To Twenty Week Amado Update Ultra Sound Date Fundal Height At Umbil Quickening Date Ultra Sound Latest Weeks Gestation Final Amado Confirmed By Final Amado Confirmed Date Final Amado Date Ultra Sound Latest Days Gestation 0 0 Menstrual History Last Menstrual Date Menses Monthly On Bcp Conception Prior Menses Frequency Hcg Plus Date Menarche Onset Age Delivery Information Delivery Date Delivery Type Labor Anesthesia Weeks Gestation Incision Type Labor Labor Length Hrs Delivered By Post Complications Tubal Sterilization Discharge Date Comments 6 Discharge Information Feeding Method Contraceptive Method Maternal HG B and HCT Levels
--- OUTSIDE RECORDS SUMMARY | 2025-02-28 09:13 | XMS_ITS | Clinical Summary ---
Author Organization [facility] Address [address] [place] [address] Care Team Providers Care Sandblaster Stone Name Role Phone Carlos Landry MD Primary Care Provider Source Comments [facility],non-owned Affiliates and Associated Physician Practices is amultiple site organization consisting of ambulatory clinics and hospital sitesin [place], [place], [place] and [place]. This disclosure is being madepursuant to the Care Everywhere program and may not contain all information available regarding this patient. Last updated 18.[facility] Allergies Active Allergy Reactions Criticality Noted Date Comments Sulfamethoxazole W-Trimethoprim GI Discomfort 0 04/05/2018 Medications * Be aware that medications may not be up to date on this document. Alwaysverify current medications with the patient. FLUoxetine HCl (PROZAC PO) Active BUPROPION HBR ER PO Active Social History Tobacco Use Types Packs/Day Years Used Date Smoking Tobacco: Every Day Smokeless Tobacco: Never Tobacco Cessation:Ready to Q uit: No; Counseling Given: Yes Comments No Sex and Gender Information Value Date Recorded Sex Assigned at Not on file Legal Sex Female 9:43 AM CDT Gender Identity Not on file Sexual Orientation Not on file Last Filed Vital Signs Vital Sign Reading Time Taken Comments Blood Pressure 122/74 10/25/2018 11:00 AM DEVULCANIZER LOADER Pulse 88 10/25/2018 11:00 AM DEVULCANIZER LOADER Temperature 36.8 C (98.2 F) 10/25/2018 11:00 AM DEVULCANIZER LOADER Respiratory Rate 16 10/25/2018 11:00 AM DEVULCANIZER LOADER Oxygen Saturation 97% 10/25/2018 11:00 AM DEVULCANIZER LOADER Inhaled Oxygen Concentration - - Weight 95.3 kg (210 lb) 10/25/2018 11:00 AM DEVULCANIZER LOADER Height 152.4 cm (5') 10/25/2018 11:00 AM DEVULCANIZER LOADER Body Mass Index 41.01 10/25/2018 11:00 AM DEVULCANIZER LOADER Plan of Treatment Health Maintenance Due Date Last Done Comments HIV SCREENING 2006 HEPATITIS C SCREENING 05/27/2009 DTAP/TDAP/TD VACCINES (1 - Tdap) 2010 HEPATITIS B VACCINE (1 of 3 - 19+ 3-dose series) 2010 PNEUMOCOCCAL VACCINE (1 of 2 - PCV) 2010 COVID-19 VACCINE (1 - 2023-2 5 season) 2024 DEPRESSION SCREENING 10/05/2024 INFLUENZA VACCINE (Season Ended) 2025 ZOSTER VACCINE (1 of 2) 2041 HIB VACCINE Aged Out No longer eligi ble based on patient's age to complete this topic HPV VACCINE Aged Out No longer eligi ble based on patient's age to complete this topic MENINGOCOCCAL (Group B) VACC INE SHARED DECISION-MAKING Aged Out No longer eligibl e based on patient's age to complete this topic MENINGOCOCCAL GROUPS A/C/Y/W VACCINE Aged Out No longer eligible b ased on patient's age to complete this topic Insurance ANTH Care Teams Sandblaster Stone Relationship Specialty Start Date End Date Carlos Landry MD [address] [facility] [address] [place] [address] PCP - General Internal Medicine 04/05/18
--- OUTSIDE RECORDS SUMMARY | 2025-02-28 09:13 | XMS_ITS | Clinical Summary ---
Author Organization [facility] Address [address] [place] [address] Care Team Providers Care Network Engineering Advisor Name Role Phone Tramaine Shook MD Primary Care Provider Allergies Active Allergy Reactions Criticality Noted Date Comments Sulfamethoxazole-Tr imethoprim Other (See comments) Low History of pancreatitis during treatment of Bactrim. Unable to rule out cause was not related to antibiotic. Medications No known medications Active Problems Problem Noted Date Diagnosed Date Menorrhagia with regular cycle 12/03/2022 Assessment & Plan (12/03/2022 9:56 AM DIRECTOR MUSEUM OR ZOO): Discussed options including Mirena IUD or OPC. [...] Immunization Administration Dates Next Due Tdap 11/28/2015 Surgical History Surgery Date Site/Laterality Comments OTHER SURGICAL HISTORY 10/05/2010 - 10/04/2011 : 8 hr labor TUBAL LIGATION tubal ligation LAPAROSCOPIC CHOLECYSTECTOMY 10/05/2015 - 10/04/2016 Cholecystectomy, laparoscopic HEMORRHOID SURGERY Hemorrhoidectomy GALLBLADDER SURGERY 02/03/2016 - 03/04/2016 Medical History Medical History Date Comments Hx Other Medical 2010 ; Outc ome: 40 week 7 lb(s) 6 oz Male Depression Depression Family History Medical History Relation Name Comments Diabetes Father Diabetes mellit us; Breast cancer Paternal Grandmother Cancer , breast; Other cancer Neg 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 Relation Name Status Comments Father Paternal Grandmother Social History Tobacco Use Types Packs/Day Years [...] on file Legal Sex Female 9:15 AM DIRECTOR MUSEUM OR ZOO Gender Identity Not on file Sexual Orientation Not on file Obstetrics History Para Term AB IAB SAB Ectopic Multiple Livin g Live Births 2 2 2 2 2 Date Outcome GA Total Labor Labor/2nd/3rd Weight Sex Type Anes PTL Taylor A1 A5 Name Clin 10/02 Term M Vag-S pont Epidura l N Living 11/28 Term F Vag-S pont Epidura l N Living Complications:None Last Filed Vital Signs Vital Sign Reading Time Taken Comments Blood Pressure 106/70 12/03/2022 9:05 AM DIRECTOR MUSEUM OR ZOO Pulse 93 12/03/2022 9:05 AM DIRECTOR MUSEUM OR ZOO Temperature 36.5 C (97.7 F) 05/14/2021 10:45 AM CDT Respiratory Rate 16 05/14/2021 10:4 5 AM CDT Oxygen Saturation 99% 05/14/2021 10: 45 AM CDT Inhaled Oxygen Concentration - - Weight 100.2 kg (220 lb 12.8 oz) 12/03/2022 9:05 AM DIRECTOR MUSEUM OR ZOO Height 152.4 cm (5') 12/03/2022 9:05 AM DIRECTOR MUSEUM OR ZOO Body Mass Index 43.12 12/03/2022 9:05 AM DIRECTOR MUSEUM OR ZOO Plan of Treatment Health Maintenance Due Date Last Done Comments Varicella Vaccines (1 of 2 - 13+ 2-dose series) 2004 Hepatitis B Screening 2009 Cervical Cancer Screening 12/04/20232022, 02/15/2019, 11/30/2017 Depression Screening 12/04/2023 12/03/2022, 02/16/20 19 Regular Well Visit/Exam 18-64 12/04/2023 12/03/2022, 02/15/2019, 11/30/2017 Influenza Vaccine (Season Ended) 2025 06/23/2017 DTaP/Tdap/Td Vaccine (7 - Td or Tdap) 11/28/2025 11/28/2015, 01/13/1996, 11/13/1992, Additional history exists Hepatitis C Screening Completed 05/07/2015 HPV Vaccines Aged Out No longer eligi ble based on patient's age to complete this topic Pneumococcal vaccine <65 Aged Out No longer eligible based on patient's age to complete this topic Procedures Procedure Name Priority Date/Time Associated Diagnosis Comments PAP AND HIGH RISK HPV, REFLEX TO GENOTYPING Routine 12/03/2022 9:54 AM DIRECTOR MUSEUM OR ZOO Well woman exam SERUM HEPATITIS C AB Routine 05/07/2015 8:52 AM CDT from Last 3 Months or Most Recently Relevant to Health Maintenance Results * Pap and High Risk HPV, reflex to Genotyping (12/03/2022 9:54 AM DIRECTOR MUSEUM OR ZOO) CLINICAL INFORMATION: [facility] Comment:None given LMP [facility] Comment:A Previous Pap [facility] Comment:None given Prev. Bx [facility] Comment:None given SOURCE: [facility] Comment:Cervix, Endocervix Pap, specimen adequacy [facility] Comment: Satisfactory for evaluation. Endocervical/transformation zone component present. Age and/or menstrual status not provided HPV interp [facility] Comment:Negative for intraep ithelial lesion or malignancy. Information Delivery Analyst Que [facility] Comment: MVB, CT(ASCP) CT Screening Location: [place] [address] [address] FUNMILAYO [place] [address] Comment [facility] Comment: EXPLANATORY NOTE: The Pap is a [...] High Risk E6/E7 Not Detected NOT DETECTED [facility] Comment: Not Detected High Risk HPV types (16,18,31,33,35,39,45,51,52, 56,58,59,66,68) were not detected. Other HPV types which cause anogenital lesions may be present. The significance of the other types of HPV in malignant processes has not been established. Methodology: Real Time PCR Thin prep 12/03/2022 9:54 AM DIRECTOR MUSEUM OR ZOO 12/04/2022 4:22 AM DIRECTOR MUSEUM OR ZOO us Ayse Saleh NP LAB CYTOLOGY ORDERABLES Fin al Result [place] [address] [address] FUN[place]ILAYO [place] [address] HASH[place] [address] [place] [address] * Serum Hepatitis C ab (05/07/2015 8:52 AM CDT) HCV ab NON-REACTI VE NON-REACTI VE HISTORICAL RESULTS Hepatitis signal to cutoff ratio 0.01 <1.00 HISTORICAL RESULTS Serum 05/07/2015 8:52 AM CDT Narrative HISTORICAL RESULTS - 05/08/2015 11:00 AM CDT Test performed at [facility] [address] [place] [address] Director: MEAGAN DEJESUS DO,MPH us Historical Provider LAB BLOOD ORDERABLES Debby hernandez Result HISTORICAL RESULTS from Last 3 Months or Most Recently Relevant to Health Maintenance Insurance [id number] [place] Care Teams Network Engineering Advisor Relationship Specialty Start Date End Date Tramaine Shook MD [address] [place] [address] [address] [place] [address] [facility] - General 05/14/21
--- NOTE | 2025-02-28 09:50 | ECG_ITS ---
Test Date: 2025-02-28 09:58:01 Measurements Intervals [place] Rate: 86 P: 26 CT: 136 QRS: 13 QRSD: 107 T: 39 QT: 350 QTc: 419 Interpretive Statements SINUS RHYTHM No previous ECG available for comparison Electronically Signed On 02-28-2025 14:24:05 CDT by Silke Boyle M.D.
--- OUTSIDE RECORDS SUMMARY | 2025-02-28 09:58 | XMS_ITS | Referral Summary ---
Author Organization [facility] B Address [address] [place] [address] Care Team Providers Care Splitting Machine Feeder Name Role Phone Tramaine Shook MD Primary Care Provider Allergies Active Allergy Reactions Criticality Noted Date Comments Sulfamethoxazole-Tr imethoprim Other (See comments) Low History of pancreatitis during treatment of Bactrim. Unable to rule out cause was not related to antibiotic. Medications No known medications Active Problems Problem Noted Date Diagnosed Date Menorrhagia with regular cycle 12/03/2022 Assessment & Plan (12/03/2022 9:56 AM CONDENSER WINDER): Discussed options including Mirena IUD or OPC. [...] on file Legal Sex Female 9:15 AM CONDENSER WINDER Gender Identity Not on file Sexual Orientation Not on file Last Filed Vital Signs Vital Sign Reading Time Taken Comments Blood Pressure 106/70 12/03/2022 9:05 AM CONDENSER WINDER Pulse 93 12/03/2022 9:05 AM CONDENSER WINDER Temperature 36.5 C (97.7 F) 05/14/2021 10:45 AM CDT Respiratory Rate 16 05/14/2021 10:4 5 AM CDT Oxygen Saturation 99% 05/14/2021 10: 45 AM CDT Inhaled Oxygen Concentration - - Weight 100.2 kg (220 lb 12.8 oz) 12/03/2022 9:05 AM CONDENSER WINDER Height 152.4 cm (5') 12/03/2022 9:05 AM CONDENSER WINDER Body Mass Index 43.12 12/03/2022 9:05 AM CONDENSER WINDER Plan of Treatment Not on file Procedures Procedure Name Priority Date/Time Associated Diagnosis Comments PAP AND HIGH RISK HPV, REFLEX TO GENOTYPING Routine 12/03/2022 9:54 AM CONDENSER WINDER Well woman exam SERUM HEPATITIS C AB Routine 05/07/2015 8:52 AM CDT from Last 3 Months or Most Recently Relevant to Health Maintenance Results * Pap and High Risk HPV, reflex to Genotyping (12/03/2022 9:54 AM CONDENSER WINDER) CLINICAL INFORMATION: [facility] Comment:None given LMP [employer] [facility] Comment:A Previous Pap [facility] [employer] [facility] Comment:None given Prev. Bx [facility] Comment:None given SOURCE: [facility] Comment:Cervix, Endocervix Pap, specimen adequacy [facility] Comment: Satisfactory for evaluation. Endocervical/transformation zone component present. Age and/or menstrual status not provided HPV interp [facility] Comment:Negative for intraep ithelial lesion or malignancy. Yarn Dumper Que [facility] Comment: MVB, CT(ASCP) CT Screening Location: [place] [address] [place] [address] Comment [facility] Comment: EXPLANATORY NOTE: The Pap is a [...] High Risk E6/E7 Not Detected NOT DETECTED [employer] /[facility] Comment: Not Detected High Risk HPV types (16,18,31,33,35,39,45,51,52, 56,58,59,66,68) were not detected. Other HPV types which cause anogenital lesions may be present. The significance of the other types of HPV in malignant processes has not been established. Methodology: Real Time PCR Thin prep 12/03/2022 9:54 AM CONDENSER WINDER 12/04/2022 4:22 AM CONDENSER WINDER Ayse Saleh NP LAB CYTOLOGY ORDERABLES Fin al Result [place] (by isePankur[facility] [address] [place] [address] [facility] [employer]/[facility] [address] [facility] [place] [address] * Serum Hepatitis C ab (05/07/2015 8:52 AM CDT) HCV ab NON-REACTI VE NON-REACTI VE HISTORICAL RESULTS Hepatitis signal to cutoff ratio 0.01 <1.00 HISTORICAL RESULTS Serum 05/07/2015 8:52 AM CDT Narrative HISTORICAL RESULTS - 05/08/2015 11:00 AM CDT Test performed at [employer] [facility] [employer] [place] [address] [place] [address] Director: MEAGAN DEJESUS DO,MPH Historical Provider MD LAB BLOOD ORDERABLES Debby l Result HISTORICAL RESULTS from Last 3 Months or Most Recently Relevant to Health Maintenance Insurance [facility] Care Teams Splitting Machine Feeder Relationship Specialty Start Date End Date Tramaine Shook MD [address] [place] [address] [address] [place] [address] PCP - General 05/14/21
--- OUTSIDE RECORDS SUMMARY | 2025-02-28 09:58 | XMS_ITS | Clinical Summary ---
Author Organization [facility] Address [address] [place] [address] Care Team Providers Care Outreach Counselor Name Role Phone Tramaine Shook MD Primary Care Provider Allergies Active Allergy Reactions Criticality Noted Date Comments Sulfamethoxazole-Tr imethoprim Other (See comments) Low History of pancreatitis during treatment of Bactrim. Unable to rule out cause was not related to antibiotic. Medications No known medications Active Problems Problem Noted Date Diagnosed Date Menorrhagia with regular cycle 12/03/2022 Assessment & Plan (12/03/2022 9:[address] MAK[address]): Discussed options including Mirena IUD or OPC. 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 Relation Name Status Comments [...] on file Legal Sex Female 9:[address] Gender Identity Not on file Sexual Orientation [...] Comments Blood Pressure 106/70 12/03/2022 9:[address] MAKER Pulse 93 12/03/2022 9:[address] MAK[address] Temperature 36.5 C (97.7 F) 05/14/2021 10:45 AM CDT Respiratory Rate 16 05/14/2021 10:4 5 AM CDT Oxygen Saturation 99% 05/14/2021 10: 45 AM CDT Inhaled Oxygen Concentration - - Weight 100.2 kg (220 lb 12.8 oz) 12/03/2022 9:[address] MAK[address] Height 152.4 cm (5') 12/03/2022 9:[address] MAKER Body Mass Index 43.12 12/03/2022 9:[address] MAKER Plan of Treatment Health Maintenance Due Date [...] REFLEX TO GENOTYPING Routine 12/03/2022 9:[address] MAKER Well woman exam SERUM HEPATITIS C AB Routine 05/07/2015 8:52 AM CDT from Last 3 Months or Most Recently Relevant to Health Maintenance Results * Pap and High Risk HPV, reflex to Genotyping (12/03/2022 9:[address] MAKER) CLINICAL INFORMATION: [facility] Comment:None given LMP [facility] Comment:A Previous Pap [facility] Comment:None given Prev. Bx [facility] Comment:None given SOURCE: [facility] Comment:Cervix, Endocervix Pap, specimen adequacy [facility] Comment: Satisfactory for evaluation. Endocervical/transformation zone component present. Age and/or menstrual status not provided HPV interp [facility] Comment:Negative for intraep ithelial lesion or malignancy. Mink Slicer Que [facility] Comment: MVB, CT(ASCP) CT Screening Location: [place] [address] Administration FUNMILAYO Nair [id number] Comment [facility] Comment: EXPLANATORY NOTE: The Pap is [...] High Risk E6/E7 Not Detected NOT DETECTED [facility] Comment: Not Detected High Risk HPV types (16,18,31,33,35,39,45,51,52, 56,58,59,66,68) were not detected. Other HPV types which cause anogenital lesions may be present. The significance of the other types of HPV in malignant processes has not been established. Methodology: Real Time PCR Thin prep 12/03/2022 9:[address] MAKER 12/04/2022 4:[address] MAK[address] us Ayse Saleh NP LAB CYTOLOGY ORDERABLES Fin al Result [place] [address] Administration FUNMILAYO Ul[place] [id number] [facility] [address] [facility] [place] [address] * Serum Hepatitis C ab (05/07/2015 8:52 AM CDT) HCV ab NON-REACTI VE NON-REACTI VE HISTORICAL RESULTS Hepatitis signal to cutoff ratio 0.01 <1.00 HISTORICAL RESULTS Serum 05/07/2015 8:52 AM CDT Narrative HISTORICAL RESULTS - 05/08/2015 11:00 AM CDT Test performed at [facility] [address] [place] [address] Director: MEAGAN DEJESUS DO,MPH us Historical Provider LAB BLOOD ORDERABLES Debby hernandez Result HISTORICAL RESULTS from Last 3 Months or Most Recently Relevant to Health Maintenance Insurance [employer] [place] Care Teams Outreach Counselor Relationship Specialty Start Date End Date Tramaine Shook MD [address] [place] [address] [address] [place] [id number] [facility] - General 05/14/21
--- OUTSIDE RECORDS SUMMARY | 2025-02-28 09:58 | XMS_ITS | Clinical Summary ---
Author Organization [facility] Address [address] [place] [address] Care Team Providers Care Boat Dispatcher Name Role Phone Carlos Landry MD Primary Care Provider [phone] Source Comments [facility],non-owned Affiliates and Associated Physician Practices is amultiple site organization consisting of ambulatory clinics and hospital sitesin [place], [place], [place] and [place]. This disclosure is being madepursuant to the Care Everywhere program and may not contain all information available regarding this patient. Last updated 18.[facility] Allergies Active Allergy Reactions Criticality Noted Date [...] Comments Blood Pressure 122/74 10/25/2018 11:00 AM MANAGER OF COMMUNITY RELATIONS Pulse 88 10/25/2018 11:00 AM MANAGER OF COMMUNITY RELATIONS Temperature 36.8 C (98.2 F) 10/25/2018 11:00 AM MANAGER OF COMMUNITY RELATIONS Respiratory Rate 16 10/25/2018 11:00 AM MANAGER OF COMMUNITY RELATIONS Oxygen Saturation 97% 10/25/2018 11:00 AM MANAGER OF COMMUNITY RELATIONS Inhaled Oxygen Concentration - - Weight 95.3 kg (210 lb) 10/25/2018 11:00 AM MANAGER OF COMMUNITY RELATIONS Height 152.4 cm (5') 10/25/2018 11:00 AM MANAGER OF COMMUNITY RELATIONS Body Mass Index 41.01 10/25/2018 11:00 AM MANAGER OF COMMUNITY RELATIONS Plan of Treatment Health Maintenance Due Date [...] complete this topic Insurance ANTH Care Teams Boat Dispatcher Relationship Specialty Start Date End Date Carlos Landry MD [address] [facility] [facility] [address] [place] [address] PCP - General Internal Medicine 04/05/18
[2025-02-28 10:12] LABS: BEDSIDEPREGUCG Negative (Negative)
[2025-02-28 10:15] LABS: Basophils Absolute Auto 0.1 K/mm3 (0.0-0.1); Basophils Percent Auto 1.1 % (0.2-1.2); Eosinophils Absolute Auto 0.1 K/mm3 (0-0.3); Eosinophils Percent Auto 0.7 % (0-4.4); Hematocrit 42.7 % (37.0-47.0); Immature Granulocyte Absolute 0.02 K/mm3 (0.00-0.031); Immature Granulocyte Percent A 0.2 % (0-0.5); Lymphocytes Absolute Auto 1.97 K/mm3 (0.9-3.2); Lymphocytes Percent Auto 24.2 % (18.3-44.2); Mean Corpuscular HGB Conc 32.8 g/dl (32-36); Mean Corpuscular Hemoglobin 30.4 pg (26-34); Mean Corpuscular Volume 92.6 fl (80-100); Mean Platelet Volume 12.2 fl (7.4-10.4); Monocytes Absolute Auto 0.5 K/mm3 (0.1-0.6); Monocytes Percent Auto 6.3 % (2.6-8.5); Neutrophils Absolute Auto 5.5 K/mm3 (1.3-6.7); Neutrophils Percent Auto 67.5 % (45.5-73.1); Platelet Count Result 305 k/mm3 (150-375); Red Blood Count 4.61 M/mm3 (4.2-5.4); Red Cell Distribution Width 13.2 % (11.5-14.5); White Blood Count 8.1 K/mm3 (4.5-10.0)
[2025-02-28 10:25] LABS: Alanine Aminotransferase 27 U/L (6-35); Albumin Level 4.7 g/dL (3.5-5.1); Alkaline Phosphatase 48 U/L (38-126); Anion Gap 8 mmol/L (4-12); Aspartate Amino Transferase 31 U/L (14-36); Bilirubin,Total 0.4 mg/dL (0.2-1.3); Blood Urea Nitrogen 13 mg/dL (7-17); Calcium 9.7 mg/dL (8.4-10.2); Carbon Dioxide 27 mmol/L (22-30); Chloride 104 mmol/L (98-107); Estimated CRCL calculation 94 ml/min; Estimated Glomerular Filt Rate > 60; Glucose 101 mg/dL (65-110); Potassium 5.3 mmol/L (3.4-5.0); Sodium 139 mmol/L (137-145)
[2025-02-28 10:37] LABS: Troponin I < 0.012 ng/mL (0.000-0.034)
[2025-02-28] MEDS: SODIUM CHLORIDE 0.9% IV 1,000 ML 999 ML IV CONT (10:37)
[2025-02-28 10:41] LABS: INR 0.9; Partial Thromboplastin Time 24.4 Seconds (22.3-36.8); Prothrombin Time 12.8 Seconds (11.1-14.7)
[2025-02-28 10:48] LABS: Magnesium 2.2 mg/dL (1.6-2.3)
--- NOTE | 2025-02-28 11:13 | PC.NURSE ---
beside shift report received from dexter kirk, taking over patient care at this time
--- NOTE | 2025-02-28 12:00 | ED_ITS ---
HPI - Neuro Symptoms/Deficit General Chief Complaint: Neuro Symptoms/Deficit Stated Complaint: facial numbness, tongue numb x 2 days Time Seen by Provider: 02/28/25 09:38 Source: patient Mode of arrival: ambulatory Limitations: no limitations History of Present Illness HPI Narrative: Patient is a 34 y/o female who presents to the ED with c/o R sided facial numbness/weakness. Patient reports she developed numbness to the right side of her tongue 2 days ago. Began having some numbness throughout her right-sided face. Yesterday into today, developed weakness of the right-sided face. States she has had difficulty drinking from a straw, smiling fully, feels her eye is very dry. Reports some discomfort in her right ear. Denies recent illness, rash, focal numbness or weakness of extremities, slurred speech, confusion, dizziness/lightheadedness, vision changes. Related Data Allergies Allergy/AdvReac Type Severity Reaction Status Date / Time sulfamethoxazole (From AdvReac Severe Other Verified 02/28/25 09:15 Bactrim) trimethoprim (From Bactrim) AdvReac Severe Other Verified 02/28/25 09:15 Review of Systems 2 Review of Systems: All systems reviewed & are unremarkable except as noted in HPI. All systems reviewed & are unremarkable except as noted in HPI and below PMFSH Past Medical History Medical History Depression Anxiety Surgical History Surgical History History of tubal ligation History of cholecystectomy Family History Family History Father Esophageal cancer Diabetes mellitus Social History Social History Smoking status: Current every day smoker Tobacco type: e-cigarettes/vaping Alcohol intake: current Alcohol use details: social Substance use: never Living arrangements: with family Gender identity (if verbalized by the patient): Female Sexual Orientation (if Verbalized by the Patient): Straight or Heterosexual Spiritual care concerns: No Exam 2 Narrative: GENERAL: Well appearing, obese with BMI of 38.8, non-toxic, in no acute distress. HEAD: Normocephalic, atraumatic. EYES: PERRL/EOMI, conjunctivae clear bilaterally. Slight serous drainage from R eye. No nystagmus. ENT: TMs clear bilaterally. No vesicular lesions. No Hebert sign. NECK: Supple. No meningeal signs. RESPIRATORY: Airway patent, respirations nonlabored. Clear to auscultation bilaterally, no rales, rhonchi, wheezing. CARDIOVASCULAR: Regular rate and rhythm without murmurs, rubs, or gallops. Peripheral pulses 2+ and equal bilaterally. MUSCULOSKELETAL: Moves all extremities. No gross deformities. SKIN: Warm, dry, normal color. No rashes. NEURO: A&O X3. Speech clear. Follows commands. Decreased wrinkling of right- sided forehead. R eye does not squint closed as much as L eye. Decreased movement of R sided mouth, unequal smile. Sensation subjectively decreased on R sided face. CN otherwise grossly intact. Steady gait. No ataxic movements. Strength 5/5 in upper and lower extremities bilaterally. [id number] and [id number] testing intact bilaterally. No pronator drift. Equal organic search lead strength bilaterally. PSYCHIATRIC: Appropriate mood and affect. Normal interaction. Course Vital Signs Vital signs: Vital Signs Temperature 97.6 F 02/28/25 09:14 Pulse Rate 106 H 02/28/25 09:14 Respiratory Rate 16 02/28/25 09:14 Blood Pressure 139/86 02/28/25 09:14 Pulse Oximetry 100 02/28/25 09:14 Oxygen Delivery Room Air 02/28/25 09:14 Temperature 98.0 F 02/28/25 10:08 Pulse Rate 106 H 02/28/25 10:08 Respiratory Rate 20 02/28/25 10:08 Blood Pressure 120/88 02/28/25 10:08 Pulse Oximetry 99 02/28/25 10:08 Oxygen Delivery Room Air 02/28/25 09:14 MDM - Neuro Symptoms/Deficit MDM Narrative Medical decision making narrative: Patient presented to ED with right-sided facial numbness/weakness over the last couple of days. Vital signs are stable upon arrival. Patient is otherwise neurologically intact. There is some asymmetry of right-sided face/smile, though she is able to move her forehead some. Forehead does not wrinkle quite is not as the left-sided, but there is movement present. No weakness of extremities. No dysarthria or aphasia. I do not appreciate any other focal deficits. Seems most consistent with Contreras's palsy, but again patient is able to move forehead slightly. Laboratory studies are otherwise fairly unremarkable. Mild elevation of potassium to 5.3. Unclear etiology. Possibly lab error. Patient given fluids. Will continue to monitor. EKG with normal sinus rhythm, no appreciable arrhythmia. Troponin undetectable. negative. Patient without any rash or wounds. CT brain/CTA brain/carotids was obtained and unremarkable. Chest x-ray is clear. Discussed case and exam with Dr. Duncan, neurology, recommended MRI to r/o central cause/demyelinating condition. Advise okay to treat for Contreras's palsy in the meantime. Will consult. Orders placed for steroids, acyclovir, artificial tears. MRI ordered. Discussed case with Lina Macdonald BODY RECALL INSTRUCTOR hospitalist, accepted patient for admission. Patient and family in agreement with plan and admission. Medical Records Attestation: I reviewed the patient's medical records. Lab Data Attestation: I reviewed the patient's lab results. 02/28/25 10:06 02/28/25 10:06 Labs: Lab Results 02/28/25 02/28/25 02/28/25 Range/Units 10:02 10:06 10:10 WBC 8.1 (4.5-10.0) K/mm3 RBC 4.61 (4.2-5.4) M/mm3 Hgb 14.0 (12.0-15.0) g/dL Hct 42.7 (37.0-47.0) % MCV 92.6 (80-100) fl MCH 30.4 (26-34) pg MCHC 32.8 (32-36) g/dl RDW 13.2 (11.5-14.5) % Plt Count 305 (150-375) k/mm3 MPV 12.2 H (7.4-10.4) fl Immature Gran % (Auto) 0.2 (0-0.5) % Neut % (Auto) 67.5 (45.5-73.1) % Lymph % (Auto) 24.2 (18.3-44.2) % Mathews % (Auto) 6.3 (2.6-8.5) % Eos % (Auto) 0.7 (0-4.4) % Baso % (Auto) 1.1 (0.2-1.2) % Lymph # (Auto) 1.97 (0.9-3.2) K/mm3 Mathews # (Auto) 0.5 (0.1-0.6) K/mm3 Eos # (Auto) 0.1 (0-0.3) K/mm3 Baso # (Auto) 0.1 (0.0-0.1) K/mm3 Abs Immat Gran (auto) 0.02 (0.00-0.031) K/mm3 Absolute Neuts (auto) 5.5 (1.3-6.7) K/mm3 Absolute Nucleated RBC 0.000 (0.0-0.012) K/mm3 Nucleated RBC % 0.0 (0.0-0.2) % PT 12.8 (11.1-14.7) Seconds INR 0.9 APTT 24.4 (22.3-36.8) Seconds Sodium 139 (137-145) mmol/L Potassium 5.3 H (3.4-5.0) mmol/L Chloride 104 (98-107) mmol/L Carbon Dioxide 27 (22-30) mmol/L Anion Gap 8 (4-12) mmol/L BUN 13 (7-17) mg/dL Creatinine 0.74 (0.7-1.0) mg/dL Estim Creat Clear Calc 94 ml/min Estimated GFR > 60 (59 - ) Glucose 101 (65-110) mg/dL Calcium 9.7 (8.4-10.2) mg/dL Magnesium 2.2 (1.6-2.3) mg/dL Total Bilirubin 0.4 (0.2-1.3) mg/dL AST 31 (14-36) U/L ALT 27 (6-35) U/L Alkaline Phosphatase 48 (38-126) U/L Troponin I < 0.012 (0.000-0.034) ng/mL Total Protein 8.0 (6.3-8.2) g/dL Albumin 4.7 (3.5-5.1) g/dL POC Urine HCG, Qual Negative (Negative) Imaging Data Attestation: I personally reviewed and interpreted this imaging study as follows: Radiologist's impression: ITS Impressions Chest X-Ray 02/28/25 10:50 IMPRESSION: 1: NO ACUTE CARDIOPULMONARY DISEASE. Head/Neck CTA 02/28/25 10:51 IMPRESSION: 1. No atherosclerotic plaque with 0% stenosis of the right and left carotid bulbs relative to normal distal artery lumen diameter (NASCET criteria). 2. Normal brain and cerebral CT angiogram. ECG Data EKG #1: Attestation: I personally reviewed and interpreted this ECG as follows: ECG completion date: 02/28/25 ECG completion time: 09:58 EKG Interpretation: normal rate (86), sinus rhythm and no ST changes Discharge Plan Discharge Clinical Impression: Numbness and tingling of right side of face, Weakness on right side of face Patient Disposition: Still a Patient Condition: Stable Patient Language: Luxembourgish Prescriptions: No Action amoxicillin 500 mg capsule 500 mg PO TID Qty: 30 0RF clindamycin HCl 300 mg capsule 300 mg PO Q8H 10 Days Qty: 30 0RF Follow-up/Referrals: PHYSICIAN,BASEBALL WINDER [Primary Care Provider] -
--- NOTE | 2025-02-28 12:54 | PM.IMHP ---
H&P: HPI History of Present Illness Date/Time: 02/28/25 12:54 Chief Complaint: Right Facial Numbness/Weakness Narrative: 34 y/o F with PMH of anxiety and depression presents here with right sided facial numbness and weakness. The patient presents here from home for further evaluation of right-sided facial numbness and facial weakness. She reports a last known well on 02/25. Initially began as numbness to the right side of her tongue and progressed to her right face, forehead, cheek, and chin over 24 hours. Then developed weakness to the right side of her face yesterday, 02/27. She reports associated right facial droop, difficulty drinking from a straw, and right eye dryness/irritation. She denies any associated focal numbness or weakness to an extremity, vision changes, changes in gait, dysphagia, or changes in speech. No significant neurological history. Initial VS at presentation: 97.6? F, HR 106, R 16, 139/86, and 100% on RA. ED workup showed: No leukocytosis, no anemia, potassium 5.3, normal renal function, initial troponin negative, hCG negative. CXR showed no acute cardiopulmonary disease. Head/neck CTA showed no atherosclerotic plaque with 0% stenosis of the right and left carotid bulbs relative to normal distal artery lumen diameter, normal brain and cervical CT angiogram. Review of Systems Review of Systems: All systems reviewed & are unremarkable except as noted in HPI and below PMFSH Past Medical History Medical History Depression Anxiety Surgical History Surgical History History of tubal ligation History of cholecystectomy Family History Family History Father Esophageal cancer Diabetes mellitus Social History Social History Smoking status: Current every day smoker Tobacco type: e-cigarettes/vaping Alcohol intake: current Alcohol use details: social Substance use: never Do You Feel Safe in your Home?: Yes Lack of Transportation: No Lack of Food: Never True Current Housing: I Have Housing Concerned About Future Housing: No Difficulty Paying Gas/Electric Bills: No Difficulty Paying for Meds: No Currently Unemployed: No Education: High School Diploma/GED Difficulty w/ Childcare or Family Care: No Living arrangements: with family Gender identity (if verbalized by the patient): Female Sexual Orientation (if Verbalized by the Patient): Straight or Heterosexual Spiritual care concerns: No Meds Home Medications and Allergies Home Medications ?Medication ?Instructions ?Recorded ?Confirmed ?Type No Home Medications 02/28/25 02/28/25 History Allergies Allergy/AdvReac Type Severity Reaction Status Date / Time sulfamethoxazole (From AdvReac Severe Other Verified 02/28/25 09:15 Bactrim) trimethoprim (From Bactrim) AdvReac Severe Other Verified 02/28/25 09:15 Vital Signs Vital Signs - 24 hr 02/28/25 09:14 02/28/25 10:08 Temperature 97.6 F 98.0 F Pulse Rate 106 H 106 H Respiratory Rate 16 20 Blood Pressure 139/86 120/88 Pulse Oximetry 100 99 Oxygen Delivery Room Air Exam Const: General: comfortable and no acute distress Other: , female, nontoxic appearance HENMT: Face/Nose/Sinus: Normal nares present Mouth: Yes moist mucous membranes Eyes: General: appearance normal, both eyes and all related structures Sclera: sclerae normal Pupils: Equal, round and reactive pupils present EOM: EOMs intact bilaterally Resp: Effort & Inspection: normal respiratory effort Auscultation: clear to auscultation bilaterally Cardio: Rate: regular rate Rhythm: regular rhythm Other: S1-S2 present without murmur, rub, ectopy GI: Other: Abdomen soft, nondistended, nontender. Normoactive bowel sounds in all quadrants. Skin: General skin exam: normal color and no rashes or lesions noted Wounds: no wounds Neuro: Motor exam (neuro): 5/5 motor strength present throughout Other: A&O x4. Numbness to the right face including the forehead, cheeks, chin, tongue. Right facial droop. Reduced eyelid movement on the right, still able to close completely. No dysarthria. Extrem: General: normal to inspection Psych: Mental Status: mental status grossly normal Affect: normal affect Other: Good insight and judgment, very pleasant H&P: Results Labs Labs: Short CBC 02/28/25 Range/Units 10:06 WBC 8.1 (4.5-10.0) K/mm3 Hgb 14.0 (12.0-15.0) g/dL Hct 42.7 (37.0-47.0) % Plt Count 305 (150-375) k/mm3 BMP 02/28/25 10:06 Sodium 139 Potassium 5.3 H Chloride 104 Carbon Dioxide 27 BUN 13 Creatinine 0.74 Glucose 101 Calcium 9.7 Cardiac Enzymes 02/28/25 Range/Units 10:06 Troponin I < 0.012 (0.000-0.034) ng/mL Liver Function 02/28/25 Range/Units 10:06 Total Bilirubin 0.4 (0.2-1.3) mg/dL AST 31 (14-36) U/L ALT 27 (6-35) U/L Alkaline Phosphatase 48 (38-126) U/L Albumin 4.7 (3.5-5.1) g/dL Assessment and Plan Assessment and plan (1) Weakness on right side of face: Code(s): R29.810 - Facial weakness Status: Acute Assessment and Plan: New deficits of right-sided facial numbness and right-sided facial weakness starting on 02/26. Last known well on 02/25 pre - admission for observation and telemetry - not candidate for thrombolytics due to timeframe - not candidate for thrombectomy due to time frame and no LVO on CTA - CXR: No acute cardiopulmonary disease - CTA head/neck: 1. No atherosclerotic plaque with 0% stenosis of the right and left carotid bulbs relative to normal distal artery lumen diameter (NASCET criteria). 2. Normal brain and cerebral CT angiogram. - neurology consulted - brain MRI w/wo ordered - will hold on checking echo w/Bubble as this is more likely Contreras's palsy - neuro checks Q4 - monitor daily labs. Check lipid panel and A1C - differential includes: Demyelinating process, CVA, Contreras's palsy. Less likely atypical migraine. - per Neurology, start treatment for Contreras's palsy: Artificial tears q.i.d., prednisone 60 mg daily, valacyclovir 1G Q8H (2) Numbness and tingling of right side of face: Code(s): R20.0 - Anesthesia of skin; R20.2 - Paresthesia of skin Status: Acute Assessment and Plan: - see above Plan Diet: Regular GI Prophylaxis: Not currently indicated DVT Prophylaxis: SCDs IV fluids: none Lines/Tubes: Peripheral IV Code Status: Full code Quality VTE Prophylaxis VTE prophylaxis: mechanical ordered Hospitalist MIPS Advance Care Plan I have confirmed that the patient's Advanced Care Plan is present, code status is documented, or surrogate decision maker is listed in patient medical record.: Yes Medication Reconciliation I have utilized all available resources to obtain, update and review the patients current medications (includes all prescriptions, OTC, herbals, cannabis, and nutritional supplements).: Yes
[2025-02-28] MEDS: predniSONE 20 MG TABLET 60 MG PO (13:06)
[2025-02-28] MEDS: valACYclovir HCL 500 MG TABLET 1000 MG PO ×2 (13:06→21:06)
--- NOTE | 2025-02-28 15:11 | ADMGEN ---
This patient, Pamella Cardona, was admitted to Medical Room 252-01. Patient/family oriented to hospital policies and general routines including ID bracelet, bed and alarms, visiting hours, pain management, procedures, bathroom and other care routines, personal items, smoking policy, room service/diet, and visiting hours. Information on how to activate the Rapid Response Team has been discussed. Patient/Family are encouraged to report perceived risks to care and to ask questions if they do not understand what they are told or what they should do.
[2025-03-01] VITALS: PULSE 62
[2025-03-01 04:00] VITALS: PULSE 104
[2025-03-01 04:17] VITALS: BP 113/65; PULSE 82; RESP 16; TEMP 37.1; O2SAT 97
[2025-03-01] MEDS: valACYclovir HCL 500 MG TABLET 1000 MG PO ×2 (05:33→13:21)
[2025-03-01 06:10] LABS: Basophils Absolute Auto 0.1 K/mm3 (0.0-0.1); Basophils Percent Auto 0.4 % (0.2-1.2); Eosinophils Absolute Auto 0.1 K/mm3 (0-0.3); Eosinophils Percent Auto 0.4 % (0-4.4); Hemoglobin 13.4 g/dL (12.0-15.0); Immature Granulocyte Absolute 0.05 K/mm3 (0.00-0.031); Immature Granulocyte Percent A 0.4 % (0-0.5); Lymphocytes Absolute Auto 2.65 K/mm3 (0.9-3.2); Lymphocytes Percent Auto 19.7 % (18.3-44.2); Mean Corpuscular HGB Conc 31.9 g/dl (32-36); Mean Corpuscular Volume 94.2 fl (80-100); Mean Platelet Volume 12.9 fl (7.4-10.4); Monocytes Absolute Auto 0.8 K/mm3 (0.1-0.6); Neutrophils Absolute Auto 9.8 K/mm3 (1.3-6.7); Neutrophils Percent Auto 73.1 % (45.5-73.1); Platelet Count Result 266 k/mm3 (150-375); Red Blood Count 4.46 M/mm3 (4.2-5.4); Red Cell Distribution Width 13.1 % (11.5-14.5); White Blood Count 13.5 K/mm3 (4.5-10.0)
[2025-03-01 06:22] LABS: Alanine Aminotransferase 25 U/L (6-35); Albumin Level 4.3 g/dL (3.5-5.1); Alkaline Phosphatase 47 U/L (38-126); Anion Gap 10 mmol/L (4-12); Aspartate Amino Transferase 25 U/L (14-36); Bilirubin,Total 0.3 mg/dL (0.2-1.3); Blood Urea Nitrogen 11 mg/dL (7-17); Calcium 9.1 mg/dL (8.4-10.2); Carbon Dioxide 21 mmol/L (22-30); Chloride 105 mmol/L (98-107); Cholesterol 245 mg/dL (0-200); Estimated CRCL calculation 119 ml/min; Estimated Glomerular Filt Rate > 60; Glucose 105 mg/dL (65-110); HDL Direct 48 mg/dL; Potassium 4.2 mmol/L (3.4-5.0); Sodium 136 mmol/L (137-145); Triglycerides 128 mg/dL (<150)
[2025-03-01 06:33] LABS: LDL Cholesterol Direct 140 mg/dL
[2025-03-01 08:00] VITALS: PULSE 66
[2025-03-01] MEDS: predniSONE 20 MG TABLET 60 MG PO (08:37)
--- NOTE | 2025-03-01 11:48 | P.CONNEU_ITS ---
Assessment and Plan Assessment and plan (1) Facial nerve palsy: Code(s): G51.0 - Contreras's palsy Status: Acute Plan 1. Right 7th nerve palsy 2. MRIs being done to rule out the possibility of demyelinating lesion because of the young age of the patient but the lesion looks like Peripheral. 3. Treatment for the was the Contreras's palsy as ordered and follow up with family physician. Consult date: 03/01/25 HPI: Pamella Cardona is a 34 year old female Admitted to the hospital through the emergency room for the complaints of right-sided facial numbness and weakness of 48hours duration along with the difficulties in drinking from a straw and complains of eyes feeling very dry, patient is allergic to Bactrim and has ongoing history of anxiety with depression, cholecystectomy, currently everyday smoker with current social alcohol intake ,on initial exam in the emergency room ,she was found to have a right-sided facial droop deficit, vital signs were normal, CBC was normal,BMP and master scan was also normal ,CT of the head was negative, chest x-raynegative, she was admitted to the hospital for the MRI of the brain to rule out the possibility of the nuclear brain stem lesion Review of Systems 2 Review of Systems: All systems reviewed & are unremarkable except as noted in HPI and below PMFSH Past Medical History Medical History Depression Anxiety Surgical History Surgical History History of tubal ligation History of cholecystectomy Family History Family History Father Esophageal cancer Diabetes mellitus Social History Social History Smoking status: Current every day smoker Tobacco type: e-cigarettes/vaping Alcohol intake: current Alcohol use details: social Substance use: never Do You Feel Safe in your Home?: Yes Lack of Transportation: No Lack of Food: Never True Current Housing: I Have Housing Concerned About Future Housing: No Difficulty Paying Gas/Electric Bills: No Difficulty Paying for Meds: No Currently Unemployed: No Education: High School Diploma/GED Difficulty w/ Childcare or Family Care: No Living arrangements: with family Gender identity (if verbalized by the patient): Female Sexual Orientation (if Verbalized by the Patient): Straight or Heterosexual Spiritual care concerns: No Meds Home Medications and Allergies Home Medications ?Medication ?Instructions ?Recorded ?Confirmed ?Type No Home Medications 02/28/25 02/28/25 History Allergies Allergy/AdvReac Type Severity Reaction Status Date / Time sulfamethoxazole (From AdvReac Severe Other Verified 02/28/25 09:15 Bactrim) trimethoprim (From Bactrim) AdvReac Severe Other Verified 02/28/25 09:15 Vital Signs Vital Signs - 24 hr 02/28/25 13:12 02/28/25 17:07 02/28/25 17:13 Temperature Pulse Rate 80 71 Respiratory Rate 16 Blood Pressure Pulse Oximetry 100 100 Oxygen Delivery Room Air 02/28/25 20:00 02/28/25 20:24 03/01/25 00:00 Temperature 36.3 C L Pulse Rate 98 82 62 Respiratory Rate 16 Blood Pressure 112/55 L Pulse Oximetry 98 Oxygen Delivery 03/01/25 04:00 03/01/25 04:17 03/01/25 08:00 Temperature 37.1 C Pulse Rate 104 H 82 Respiratory Rate 16 Blood Pressure 113/65 Pulse Oximetry 97 Oxygen Delivery Room Air Exam 2 Narrative: exam today revealed her to be awake alert cooperative in no obvious acute distress, head normocephalic with no bruit, ear nose throat examination normal, neck supple with no meningeal signs, heart regular with no murmur, lungs clear to auscultation, abdomen soft nontender, neurologically she is awake alert oriented x4, his speech not dysphasic not dysarthric and not dysphonic, pupils round regular react to light equally, extraocular movements are full with no nystagmus, facial sensation intact, face is symmetric with flattening of the wrinkling of the forehead as well as the nasolabial fold, tongue in the midline with no fasciculation, uvula in the midline, motor examination revealed normal strength and tone in upper and lower extremities without evidence of any abnormal tones or asymmetry of the deep tendon reflexes, plantars downgoing, no evidence of any cerebellar deficit. Results Labs 03/01/25 05:55 03/01/25 05:55 Labs: Short CBC 03/01/25 Range/Units 05:55 WBC 13.5 H (4.5-10.0) K/mm3 Hgb 13.4 (12.0-15.0) g/dL Hct 42.0 (37.0-47.0) % Plt Count 266 (150-375) k/mm3 BMP 03/01/25 05:55 Sodium 136 L Potassium 4.2 Chloride 105 Carbon Dioxide 21 L BUN 11 Creatinine 0.57 L Glucose 105 Calcium 9.1 Liver Function 03/01/25 Range/Units 05:55 Total Bilirubin 0.3 (0.2-1.3) mg/dL AST 25 (14-36) U/L ALT 25 (6-35) U/L Alkaline Phosphatase 47 (38-126) U/L Albumin 4.3 (3.5-5.1) g/dL
[2025-03-01 12:00] VITALS: PULSE 90
--- NOTE | 2025-03-01 12:12 | P.DS_ITS ---
DS: Admitting Diagnosis Discharge Date 03/01/2025 0830 Admitting Diagnosis bells palsy of the right face DS: Discharge Diagnosis Discharge Diagnosis (1) Weakness on right side of face: Code(s): R29.810 - Facial weakness Status: Acute Assessment and Plan: New deficits of right-sided facial numbness and right-sided facial weakness starting on 02/26. Last known well on 02/25 pre - admission for observation and telemetry - not candidate for thrombolytics due to timeframe - not candidate for thrombectomy due to time frame and no LVO on CTA - CXR: No acute cardiopulmonary disease - CTA head/neck: 1. No atherosclerotic plaque with 0% stenosis of the right and left carotid bulbs relative to normal distal artery lumen diameter (NASCET criteria). 2. Normal brain and cerebral CT angiogram. - neurology consulted - brain MRI w/wo ordered - will hold on checking echo w/Bubble as this is more likely Contreras's palsy - neuro checks Q4 - monitor daily labs. Check lipid panel and A1C - differential includes: Demyelinating process, CVA, Contreras's palsy. Less likely atypical migraine. - per Neurology, start treatment for Contreras's palsy: Artificial tears q.i.d., prednisone 60 mg daily, valacyclovir 1G Q8H (2) Numbness and tingling of right side of face: Code(s): R20.0 - Anesthesia of skin; R20.2 - Paresthesia of skin Status: Acute Assessment and Plan: - see above Plan Diet: Regular GI Prophylaxis: Not currently indicated DVT Prophylaxis: SCDs IV fluids: none Lines/Tubes: Peripheral IV Code Status: Full code DS: Summary Hospital Course Reason for hospitalization: 34 y/o F with PMH of anxiety and depression presents here with right sided facial numbness and weakness. The patient presents here from home for further evaluation of right-sided facial numbness and facial weakness. She reports a last known well on 02/25. Initially began as numbness to the right side of her tongue and progressed to her right face, forehead, cheek, and chin over 24 hours. Then developed weakness to the right side of her face yesterday, 02/27. She reports associated right facial droop, difficulty drinking from a straw, and right eye dryness/irritation. She denies any associated focal numbness or weakness to an extremity, vision changes, changes in gait, dysphagia, or changes in speech. No significant neurological history. Initial VS at presentation: 97.6? F, HR 106, R 16, 139/86, and 100% on RA. ED workup showed: No leukocytosis, no anemia, potassium 5.3, normal renal function, initial troponin negative, hCG negative. CXR showed no acute cardiopulmonary disease. Head/neck CTA showed no atherosclerotic plaque with 0% stenosis of the right and left carotid bulbs relative to normal distal artery lumen diameter, normal brain and cervical CT angiogram. Hospital Course: 34-year-old female with past medical history of anxiety and depression who presented to the ED with right-sided facial numbness and weakness. CT of the head negative. Patient was started on prednisone and valacyclovir which has been continued. MRI was performed did not show any acute findings. Patient to follow-up with her primary care provider. Currently patient is doing well and she denies any chest pain, shortness a breath, nausea, vomiting, diarrhea constipation. Patient stable for discharge for labs and vital signs. Follow-up instructions have been given to the patient who verbalized understanding agrees with this care plan at this time. Status at Discharge Functional status at discharge: independent ambulation Overall status at discharge: patient is progressing back to baseline Time Spent with Patient Time attestation: Total time spent providing and/or coordinating discharge services: 48 minutes Time spent: Greater than 30 minutes Specific discharge activities: Diagnostic testing, chart review, developing a treatment plan, education, care coordination documentation, physical exam, result review Exam Narrative: General: well-nourished, well-appearing 34-year-old female, sitting up in bed, comfortable, NARD Neuro: awake, alert and oriented x4, speech clear, no focal neuro deficits noted HEENMT: Right-sided facial droop and paralysis Respiratory: Clear to auscultation bilaterally without crackles, rhonchi or w heezes, nonlabored breathing Cardio: regular rate, regular rhythm with S1-S2 Abdomen: nondistended, normoactive bowel sounds, soft, nontender to palpation Extremities: no edema, erythema, or tenderness to palpation, DP pulses 2+ bilaterally Skin: no rashes or lesions, warm and dry Psych: appropriate mood and affect, judgment and insight intact DS: Data Data Completed and Pending Labs on day of discharge: Labs from last 24 hours 03/01/25 05:55 WBC 13.5 H RBC 4.46 Hgb 13.4 Hct 42.0 MCV 94.2 MCH 30.0 MCHC 31.9 L RDW 13.1 Plt Count 266 MPV 12.9 H Immature Gran % (Auto) 0.4 Neut % (Auto) 73.1 Lymph % (Auto) 19.7 Bureau % (Auto) 6.0 Eos % (Auto) 0.4 Baso % (Auto) 0.4 Lymph # (Auto) 2.65 Bureau # (Auto) 0.8 H Eos # (Auto) 0.1 Baso # (Auto) 0.1 Abs Immat Gran (auto) 0.05 H Absolute Neuts (auto) 9.8 H Absolute Nucleated RBC 0.000 Nucleated RBC % 0.0 Sodium 136 L Potassium 4.2 Chloride 105 Carbon Dioxide 21 L Anion Gap 10 BUN 11 Creatinine 0.57 L Estim Creat Clear Calc 119 Estimated GFR > 60 Glucose 105 Calcium 9.1 Total Bilirubin 0.3 AST 25 ALT 25 Alkaline Phosphatase 47 Total Protein 7.0 Albumin 4.3 Triglycerides 128 Cholesterol 245 H LDL Cholesterol Direct 140 HDL Direct 48 Discharge Plan Discharge Attending physician on discharge: Aiden Kc Consulting providers: Alex Tenorio; Jace Duncan Discharging Clinician: Neville Hooper Patient Disposition: Home Activity: may shower, unlimited and as tolerated Diet: regular Discharge Instructions: * Take all medications as prescribed even if feeling better * Eat well balanced meals and stay hydrated * Change positions slowly taking a break in between each position change * If you should experience any chest pain, shortness of breath, temps >100.4 or any other worrisome symptoms please follow up with your PCP come back to the hospital * Follow up with your primary in 1 weeks * It has been a pleasure taking care of you thank you for using our services Patient Instructions: Antibiotic Form Patient Language: Honduran Stand Alone Forms: General Discharge Information Follow-up/Referrals: Alex Tenorio MD [Physician] - 1 Week Discharge Medications: New prednisone 20 mg Tablet 60 mg PO DAILY@0800 Qty: 42 0RF valacyclovir [Valtrex] 500 mg Tablet 1,000 mg PO Q8HR Qty: 84 0RF Date of admission: 02/28/25 12:49 Primary Care Provider: Julio C,Malinda Phelan Admitting Provider: Shanon Gutierrez Attending physician on admission: Shanon Gutierrez Condition: Stable Hospitalist MIPS Heart Failure (Exclusion) Patient has history of Heart Transplant or Left Ventricular Assistive Device?: No IF YES, STOP HERE Heart Failure (Qualifier) Patient has current or prior documentation of LVEF less than or equal to 40%, or mod/servere depressed LVSF?: No IF NO, STOP HERE
[2025-03-01 14:00] VITALS: BP 122/87; PULSE 104; RESP 16; O2SAT 100
== END 2025-03-01 16:05 | disposition home or self-care (01) ==
LOC: ANHED 13:00 → ANH2MED 03-01 12:33 → ANH3MEDSUR 03-02 07:19
PROVIDERS: Student in an Organized Health Care Education/Training Program; Admitting Provider Family Medicine; Emergency Provider Physician Assistant; PCP Nurse Practitioner Family; Visit Provider Internal Medicine
DX: G51.0 Bell's palsy (principal); F41.8 Other specified anxiety disorders; F17.290 Nicotine dependence, other tobacco product, uncomplicated; E66.9 Obesity, unspecified; Z68.38 Body mass index [BMI] 38.0-38.9, adult
CPT/HCPCS: 36415; 70496; 70498; 70553; 71045; 80053; 80061; 81025; 83735; 84484; 85025; 85610; 85730; 93005; 96361; 96374; 99285; A9270; A9577; G0378; J7030; J7512; Q9967